=== PATIENT | male | born 1960 | race Hispanic/Latino ===

== ENCOUNTER 2017-10-13 12:45 | Emergency (ER) | payer MEDICAID, OTHER ==
[2017-10-13] MEDS ORDERED: Lidocaine 1% (PF) 30 ML VIAL ONE (13:13)
[2017-10-13] MEDS ORDERED: Dexamethasone 10 MG/ML VIAL ONE (13:13)
[2017-10-13] MEDS ORDERED: cefTRIAXone\\ROCEPHIN 500 MG VIAL ONE (13:13)
--- NOTE | 2017-10-13 15:07 | RAD ---
PORTABLE CHEST: Date: 10/13/17 HISTORY: Cough. COMPARISON: 07/04/03. Review is also most of chest x-ray of 07/18/08, which is the most recent exam available. FINDINGS: Heart size appears slightly enlarged. There is a right-sided pleural effusion present. Left lung is c lear. IMPRESSION: Development of some right-sided pleural changes. These could be chronic in nature or could be related to a more acute small right pleural effusion with associated atelectasis. POS: [facility]
== END 2017-10-13 13:45 | disposition home or self-care (01) ==
LOC: ERS 12:45
DX: J20.9 Acute bronchitis, unspecified (principal); E11.9 Type 2 diabetes mellitus without complications; I10 Essential (primary) hypertension; F20.9 Schizophrenia, unspecified; Z79.84 Long term (current) use of oral hypoglycemic drugs; Z79.899 Other long term (current) drug therapy
CPT/HCPCS: 71045; 94640; 96372; J0696; J1100; J2001; J7620

== ENCOUNTER 2018-11-08 14:36 | Emergency (ER) | payer OTHER ==
[2018-11-08 16:02] LABS: #Eosinphils 0.5 thou/uL (0.0-0.7); #Lymphocytes 0.7 thou/uL (1.20-3.40); #Monocytes 0.6 thou/uL (0.11-0.59); #Neutrophils 7.2 thou/uL (1.40-6.50); %Basophils 0.1 % (0.0-1.0); %Eosinophils 5.2 % (0.0-10.0); %Lymphocytes 7.9 % (21.0-51.0); %Monocytes 6.5 % (0.0-10.0); %Neutrophils 80.3 % (42.0-75.0); Hemoglobin 9.6 g/dL (14.0-18.0); Mean Corpuscular HGB CONC 33.6 g/dL (32.0-36.0); Mean Corpuscular Hemoglobin 31.5 pg (27.0-31.0); Mean Corpuscular Volume 93.8 fL (78.0-98.0); Mean Platelet Volume 6.6 fL (7.4-10.4); Platelet Count 127 thou/uL (130-400); RBC Distribution Width 11.3 % (11.5-14.5); Red Blood Cell (RBC) Count 3.04 mill/uL (4.70-6.10)
[2018-11-08 16:11] LABS: ALT (SGPT) 12 U/L (8-55); AST (SGOT) 12 U/L (5-34); Albumin 3.7 g/dL (3.5-5.0); Alkaline Phosphatase 78 U/L (40-150); Anion Gap 11 mmol/L (10-20); BUN (Urea Nitrogen) 25 mg/dL (8.4-25.7); Bilirubin, Total 0.3 mg/dL (0.2-1.2); Calc. Creatinine Clearance 0 mL/min (70-130); Calcium 8.6 mg/dL (7.8-10.44); Carbon Dioxide 28 mmol/L (22-29); Chloride 104 mmol/L (98-107); Estimated GFR-MDRD 42; Globulin 3.3 g/dL (2.4-3.5); Glucose 130 mg/dL (70-105); Lipase 19 U/L (8-78); Potassium 4.5 mmol/L (3.5-5.1); Sodium 138 mmol/L (136-145)
== END 2018-11-08 16:50 | disposition home or self-care (01) ==
LOC: ERS 14:36
DX: E11.649 Type 2 diabetes mellitus with hypoglycemia without coma (principal); R10.9 Unspecified abdominal pain; I10 Essential (primary) hypertension; F20.9 Schizophrenia, unspecified; Z79.899 Other long term (current) drug therapy; Z79.84 Long term (current) use of oral hypoglycemic drugs; Z79.51 Long term (current) use of inhaled steroids
CPT/HCPCS: 36415; 36416; 80053; 83690; 85025; 99285

== ENCOUNTER 2018-12-11 10:55 | Emergency (ER) | payer OTHER | END 2018-12-11 13:29 | disposition home or self-care (01) | LOC: ERS 10:55 | DX: K59.00 Constipation, unspecified (principal) | CPT/HCPCS: 99281 ==

== ENCOUNTER 2018-12-30 15:47 | Emergency (ER) | payer OTHER ==
[2018-12-30 16:24] LABS: #Eosinphils 0.5 thou/uL (0.0-0.7); #Lymphocytes 0.9 thou/uL (1.20-3.40); #Monocytes 0.5 thou/uL (0.11-0.59); #Neutrophils 4.2 thou/uL (1.40-6.50); %Basophils 0.2 % (0.0-1.0); %Eosinophils 7.7 % (0.0-10.0); %Lymphocytes 14.4 % (21.0-51.0); %Monocytes 7.9 % (0.0-10.0); %Neutrophils 69.9 % (42.0-75.0); Hemoglobin 9.8 g/dL (14.0-18.0); Mean Corpuscular HGB CONC 35.1 g/dL (32.0-36.0); Mean Corpuscular Hemoglobin 32.7 pg (27.0-31.0); Mean Corpuscular Volume 93.1 fL (78.0-98.0); Mean Platelet Volume 6.7 fL (7.4-10.4); Platelet Count 127 thou/uL (130-400); RBC Distribution Width 11.3 % (11.5-14.5); Red Blood Cell (RBC) Count 2.99 mill/uL (4.70-6.10)
[2018-12-30 16:46] LABS: ALT (SGPT) 7 U/L (8-55); AST (SGOT) 11 U/L (5-34); Albumin 3.8 g/dL (3.5-5.0); Alkaline Phosphatase 76 U/L (40-150); Anion Gap 14 mmol/L (10-20); BUN (Urea Nitrogen) 24 mg/dL (8.4-25.7); Bilirubin, Total 0.4 mg/dL (0.2-1.2); Calc. Creatinine Clearance 0 mL/min (70-130); Calcium 8.7 mg/dL (7.8-10.44); Carbon Dioxide 21 mmol/L (22-29); Chloride 104 mmol/L (98-107); Estimated GFR-MDRD 40; Globulin 3.2 g/dL (2.4-3.5); Glucose 81 mg/dL (70-105); Potassium 4.2 mmol/L (3.5-5.1); Sodium 135 mmol/L (136-145)
[2018-12-30 18:02] LABS: Bilirubin Negative (Negative); Blood, Urine Negative (Negative); Clarity CLEAR (Clear); Glucose, Urine (Dipstick) Negative (Negative); Leukocyte Negative (Negative); Nitrite Negative (Negative); Protein, Urine (Dipstick) Negative (Neg-Trace); Specific Gravity, Urine 1.012 (1.002-1.036); pH, Urine 6.5 (5.0-9.0)
== END 2018-12-30 19:46 | disposition home or self-care (01) ==
LOC: ERS 15:47
DX: E11.649 Type 2 diabetes mellitus with hypoglycemia without coma (principal); I10 Essential (primary) hypertension; F32.9 Major depressive disorder, single episode, unspecified; F25.9 Schizoaffective disorder, unspecified; Z79.899 Other long term (current) drug therapy; Z79.84 Long term (current) use of oral hypoglycemic drugs
CPT/HCPCS: 36415; 36416; 51701; 80053; 81003; 83690; 84484; 85025; 93005

== ENCOUNTER 2019-02-14 15:24 | Inpatient (IN) | payer OTHER ==
[2019-02-14] MEDS ORDERED: D5 1/2 NS w/20 mEq KCL 0 ML ONE (16:41)
[2019-02-14 16:53] LABS: #Eosinphils 0.2 thou/uL (0.0-0.7); #Lymphocytes 0.8 thou/uL (1.20-3.40); #Monocytes 0.6 thou/uL (0.11-0.59); #Neutrophils 7.1 thou/uL (1.40-6.50); %Basophils 0.3 % (0.0-1.0); %Lymphocytes 9.2 % (21.0-51.0); %Monocytes 6.9 % (0.0-10.0); %Neutrophils 81.6 % (42.0-75.0); Hemoglobin 10.1 g/dL (14.0-18.0); Mean Corpuscular HGB CONC 33.5 g/dL (32.0-36.0); Mean Corpuscular Hemoglobin 31.7 pg (27.0-31.0); Mean Corpuscular Volume 94.7 fL (78.0-98.0); Mean Platelet Volume 7.1 fL (7.4-10.4); Platelet Count 122 thou/uL (130-400); RBC Distribution Width 11.8 % (11.5-14.5); Red Blood Cell (RBC) Count 3.18 mill/uL (4.70-6.10); White Blood Cell (WBC) Count 8.7 thou/uL (4.8-10.8)
[2019-02-14 17:14] LABS: ALT (SGPT) 8 U/L (8-55); AST (SGOT) 10 U/L (5-34); Albumin 3.8 g/dL (3.5-5.0); Alkaline Phosphatase 78 U/L (40-150); Anion Gap 11 mmol/L (10-20); BUN (Urea Nitrogen) 34 mg/dL (8.4-25.7); Bilirubin, Total 0.3 mg/dL (0.2-1.2); Calc. Creatinine Clearance 0 mL/min (70-130); Calcium 8.8 mg/dL (7.8-10.44); Carbon Dioxide 23 mmol/L (22-29); Chloride 109 mmol/L (98-107); Estimated GFR-MDRD 50; Globulin 3.3 g/dL (2.4-3.5); Potassium 4.3 mmol/L (3.5-5.1); Protein, Total 7.1 g/dL (6.0-8.3); Sodium 139 mmol/L (136-145)
[2019-02-14 17:27] LABS: Glucose 23 mg/dL (70-105)
[2019-02-14] MEDS ORDERED: Dextrose 50% Abboject 50 ML SYRINGE ONE ×2 (17:51→21:06)
[2019-02-14 19:36] VITALS: BMI 22.8
[2019-02-14] MEDS ORDERED: Dextrose 5 % And 0.9 % NaCl 1,000 ML IV SCH (21:45)
[2019-02-14] MEDS ORDERED: Acetaminophen 325 MG TAB PO PRN (22:05)
[2019-02-14] MEDS ORDERED: Senokot S 8.6-50 MG TAB PO PRN (22:05)
[2019-02-14] MEDS: Dextrose 10% in Water 1,000 ML IV SCH (22:20)
[2019-02-14] MEDS ORDERED: Dextrose 50% Abboject 50 ML SYRINGE SLOW IVP PRN (23:11)
[2019-02-14] MEDS ORDERED: HumaLOG 300 UNITS/3 ML VIAL SC PRN (23:11)
[2019-02-14] MEDS ORDERED: Dextrose 5% in Water 1,000 ML IV PRN (23:11)
--- NOTE | 2019-02-15 03:51 | HP ---
CHIEF COMPLAINT: Slurred speech. HISTORY OF PRESENT ILLNESS: The patient is a 58-year-old male with a history of schizophrenia and also history of diabetes, who presents to the hospital with complaints of possible slurred speech. The patient's brother, who was at the bedside stated that for the past few months, he has noticed that the patient has been having multiple episodes of hypoglycemia. The patient's brother noted today that the patient appeared to have some slurred speech at this time. He was also found to be acting a little strange to the brother. He did check his blood sugar and the blood sugar was very low. At this time, the patient was given some candy and juice by the family and also was given a little piece of pie and some soda. The patient's brother then took him to the grocery store; however, later on, the patient started acting strange again. At this time, the patient's brother checked the blood sugar and stated that it was high. At this time, ambulance was called. When he was seen by the ambulance EMS people, he was noted to have hypoglycemia and at this time, the patient was given a D50 shot. The patient's brother who was at the bedside stated that for the past couple of months, he has lost a significant amount of weight, about 23 pounds, because the patient has been having some dysphagia. The patient's brother also stated that he is unclear if the dysphagia is related to his psychiatric disease versus medication versus something else. He has been following up with his primary care, who was supposed to connect him with GI for possible endoscopy, which currently has not happened. He also further states that the patient has now gained weight and has been eating without any difficulties. PAST MEDICAL HISTORY: As of the following; 1. History of schizophrenia. 2. History of hypertension and diabetes. 3. History of pancreatitis. PAST SURGICAL HISTORY: He has had a cholecystectomy. ALLERGIES: HE HAS NO KNOWN ALLERGIES. MEDICATIONS: 1. Benztropine 2 mg p.o. daily. 2. Finasteride 5 mg daily. 3. Lisinopril 5 mg daily. 4. Metoprolol 50 mg daily. 5. Olanzapine 20 mg daily. 6. Trazodone 100 mg daily. 7. Glyburide 2.5/500 one p.o. q.a.m. with meals. REVIEW OF SYSTEMS: All negative except for the ones mentioned above in the HPI. SOCIAL HISTORY: He denies any alcohol use, drug use, or smoking history. He lives with his brother and he is a full code. FAMILY HISTORY: Sisters had stomach cancer. One sister had coronary artery disease. One sister had hypertension. LABORATORY RESULTS: As of the following; WBCs of 8.7, hemoglobin of 10.1, hematocrit of 30.2, platelets of 122. Chemistry; sodium 139, potassium of 4.3, BUN 34, creatinine 1.45. His glucose was 23. PHYSICAL EXAMINATION: VITAL SIGNS: As of the following; temperature 97.6, heart rate 81, respirations 18, O2 saturations 99% on room air, and blood pressure 162/81. GENERAL: He is awake, alert, and oriented x3. Does not appear in any distress. HEENT: Normocephalic, atraumatic. No lymphadenopathy noted. Pupils are equal and reactive to light. CV: S1 and S2 present. No murmurs, rubs, or gallops. LUNGS: Clear to auscultation. No rhonchi or wheezes noted. ABDOMEN: Soft and nontender. Bowel sounds are present x2. EXTREMITIES: No edema. Pedal pulses are present x2. NEUROVASCULAR: There are no focal deficits noted. SKIN: No cuts, lesions, or bruises noted. ASSESSMENT AND PLAN: The patient is a very pleasant 58-year-old male, who presents to the hospital with complaints of slurred speech and was found to have hypoglycemia. 1. Hypoglycemia. This could be secondary to his medication related. The patient is on glyburide and on metformin. The brother did state that the patient has lost a tremendous amount of weight; however, now he continues to gain his weight back. This could be secondary to the glyburide. I will hold his medications. I will check a hemoglobin A1c. I will hold off any further testing in regard to possible C-peptide and also insulin-like growth factor for now. We will continue the D10 and continue to monitor him closely. 2. History of hypertension. We will continue his home medications. 3. History of schizophrenia. I do not believe some of his medications are causing hypoglycemia. I believe this is possibly from weight loss and also the use of glyburide since metformin does not cause hypoglycemia. 4. Deep vein thrombosis prophylaxis. We will put the patient on some SCDs and heparin. Job ID: [id number]
[2019-02-15] MEDS ORDERED: hydrALAZINE 20 MG/ML VIAL SLOW IVP PRN (04:54)
[2019-02-15 05:52] LABS: #Eosinphils 0.2 thou/uL (0.0-0.7); #Lymphocytes 0.5 thou/uL (1.20-3.40); #Monocytes 0.5 thou/uL (0.11-0.59); #Neutrophils 5.1 thou/uL (1.40-6.50); %Eosinophils 2.9 % (0.0-10.0); %Lymphocytes 8.4 % (21.0-51.0); %Monocytes 7.4 % (0.0-10.0); %Neutrophils 81.3 % (42.0-75.0); Hemoglobin 9.5 g/dL (14.0-18.0); Mean Corpuscular Volume 96.8 fL (78.0-98.0); Mean Platelet Volume 7.1 fL (7.4-10.4); Platelet Count 113 thou/uL (130-400); RBC Distribution Width 11.9 % (11.5-14.5); Red Blood Cell (RBC) Count 3.08 mill/uL (4.70-6.10); White Blood Cell (WBC) Count 6.3 thou/uL (4.8-10.8)
[2019-02-15 06:11] LABS: Anion Gap 11 mmol/L (10-20); BUN (Urea Nitrogen) 27 mg/dL (8.4-25.7); Calc. Creatinine Clearance 57 mL/min (70-130); Calcium 8.7 mg/dL (7.8-10.44); Carbon Dioxide 22 mmol/L (22-29); Chloride 107 mmol/L (98-107); Estimated GFR-MDRD 55; Glucose 104 mg/dL (70-105); Potassium 4.1 mmol/L (3.5-5.1); Sodium 136 mmol/L (136-145)
[2019-02-15] MEDS: Enoxaparin Sodium 40 MG/0.4 ML SYRINGE SC SCH (07:49)
[2019-02-15] MEDS: OLANZapine 5 MG TAB PO SCH (07:49)
[2019-02-15] MEDS: traZODone HCl 50 MG TAB PO SCH (07:50)
[2019-02-15] MEDS: Benztropine 1 MG TAB PO SCH (07:50)
[2019-02-15] MEDS: Lisinopril 5 MG TAB PO SCH (07:51)
[2019-02-15] MEDS: Metoprolol Tartrate 50 MG TAB PO SCH (07:51)
[2019-02-15] MEDS: Finasteride 5 MG TAB PO SCH (07:51)
--- NOTE | 2019-02-15 09:22 | PRG ---
DATE OF SERVICE: 02/15/2019 SUBJECTIVE: The patient is seen and examined at the bedside. The patient's brother is present in the room during my visit. He does not have much complaints to offer. OBJECTIVE: VITAL SIGNS: Blood pressure is 171/84, pulse is 76, respiratory rate is 18, O2 saturation is 97% on room air, and temperature is 98.0. HEENT: His head is atraumatic and normocephalic. Eyes are PERRLA, sclerae are nonicteric. Oral mucosa is moist. NECK: Supple. LUNGS: Clear. HEART: S1, S2 normal. ABDOMEN: Soft. Mildly tender on deeper palpation all over. No organomegaly. EXTREMITIES: No clubbing, cyanosis, or edema. NEUROLOGIC: He follows my commands. He is not very well oriented. He knows that he is in the hospital, but he does not know exact date, but that is normal according to his brother. He moves his all 4 extremities. LABORATORY DATA: Labs showed white count of 6.3, hemoglobin 9.5, hematocrit 29.8, platelet count is 113, neutrophils 81%. Normal electrolytes. BUN of 27, creatinine 1.33. Glucose is ranging from 40 to 122. Hemoglobin A1c 5.0. IMPRESSION: 1. Recurrent hypoglycemia in the setting of renal insufficiency. We will continue holding his oral medications, which is a combination of glyburide and metformin. We will continue his D10 IV fluids. I think that he is going to recover from this in the next 24 hours and he will not need any D10 support. If he does not, we will do additional testing on him, but this is most likely related to his medications he was taking at home. 2. Hypertension. We will continue his home medications and make some adjustments to get his blood pressure under better control. 3. History of schizophrenia. He gets injections every 2 weeks for his psychiatric illness. We will keep him on deep vein thrombosis prophylaxis with Lovenox and sequential compression devices. Job ID: [id number]
[2019-02-15] MEDS: Dextrose 10% in Water 1,000 ML IV SCH (12:00)
--- NOTE | 2019-02-15 17:01 | EKG ---
Test Reason : Blood Pressure : / mmHG Vent. Rate : 073 BPM Atrial Rate : 073 BPM P-R Int : 138 ms QRS Dur : 082 ms QT Int : 390 ms P-R-T Axes : 043 027 036 degrees QTc Int : 429 ms Normal sinus rhythm Normal ECG Confirmed by JOSE ALFREDO HUGGINS, BALA ([id number]), graphics editor TEDDY LEWIS ([id number]) on 02/15/2019 5:01:11 PM Referred By: Confirmed By:BALA VELIZ MD
[2019-02-16] MEDS: Enoxaparin Sodium 40 MG/0.4 ML SYRINGE SC SCH (07:58)
[2019-02-16] MEDS: Finasteride 5 MG TAB PO SCH (07:59)
[2019-02-16] MEDS: Benztropine 1 MG TAB PO SCH (07:59)
[2019-02-16] MEDS: Metoprolol Tartrate 50 MG TAB PO SCH (08:00)
[2019-02-16] MEDS: Lisinopril 5 MG TAB PO SCH (08:00)
[2019-02-16] MEDS: OLANZapine 5 MG TAB PO SCH (08:01)
[2019-02-16] MEDS: traZODone HCl 50 MG TAB PO SCH (08:06)
--- NOTE | 2019-02-16 12:46 | DIS ---
DATE OF ADMISSION: 02/14/2019 DATE OF DISCHARGE: 02/16/2019 DISCHARGE DIAGNOSES: 1. Hypoglycemia related to medications, metformin plus glipizide. 2. Renal insufficiency, improved with IV fluids. 3. Hypertension. 4. History of schizophrenia. HOSPITAL COURSE: The patient is a 58-year-old male with past medical history of diabetes and schizophrenia, who developed slurred speech and he was found to be hypoglycemic. By EMS, he was given D50 injection and brought to the emergency room for further evaluation home. At the time of emergency room evaluation, his white count was 8.7, hemoglobin 10.1, hematocrit 30.2, and platelet count 122. Sodium 139, potassium 4.3, BUN 34, creatinine 1.45, and glucose was 23. The patient was treated for his hypoglycemia. His hemoglobin A1c came back at 5.0. His combination of glipizide and metformin were stopped and his glycemia recovered with D5 water infusion. His last several Accu-Cheks came back at 197, 230, 171, and 149. His D5 water infusions were stopped yesterday. He is discharged home. His vitals are blood pressure is 167/72, pulse is 81, temperature is 98.1, respirations 18, and O2 saturation is 97% on room air. He is seen and examined before his discharge. His disposition is home. His brother is present during this visit in the room. He is willing to take him home. DIET: He is going to stay on 2000-calories ADA diet. ACTIVITIES: As tolerated. HOME MEDICATIONS: 1. Metformin 500 mg twice a day. 2. Benztropine 2 mg daily. 3. Finasteride 5 mg daily. 4. Lisinopril 5 mg daily. 5. Metoprolol 50 mg daily. 6. Olanzapine 20 mg daily. 7. Trazodone 100 mg at bedtime. FOLLOWUP: He is going to follow up with his primary care physician in 1 week. TIME SPENT: Time spent on this discharge is less than 30 minutes. Job ID: [id number]
[2019-02-16 17:24] VITALS: BP 149/77; TEMP 97.8
== END 2019-02-16 13:56 | disposition home or self-care (01) | DRG 639 ==
LOC: ERS 15:24 → T4-B 17:13 → ERS 18:39
PROVIDERS: ADMIT Family Medicine; ATTEND Family Medicine
DX: E11.649 Type 2 diabetes mellitus with hypoglycemia without coma (principal); I10 Essential (primary) hypertension; F20.9 Schizophrenia, unspecified; T38.3X5A Adverse effect of insulin and oral hypoglycemic [antidiabetic] drugs, initial encounter; N28.9 Disorder of kidney and ureter, unspecified; Z90.49 Acquired absence of other specified parts of digestive tract
CPT/HCPCS: 36415; 36416; 80048; 80053; 83036; 84484; 85025; 93005; 96361; 96374; J1650

== ENCOUNTER 2020-07-10 21:20 | Inpatient (IN) | payer OTHER ==
[~2020-07-10 21:20] MED LIST: Iopamidol-370 76% 500 ML 1 ML ONE
[2020-07-10 22:14] LABS: Hemoglobin 8.6 g/dL (14.0-18.0); Mean Corpuscular HGB CONC 35.1 g/dL (32.0-36.0); Mean Corpuscular Volume 90.9 fL (78.0-98.0); RBC Distribution Width 11.3 % (11.5-14.5); Red Blood Cell (RBC) Count 2.69 mill/uL (4.70-6.10); White Blood Cell (WBC) Count 4.4 thou/uL (4.8-10.8)
--- NOTE | 2020-07-10 22:22 | RAD ---
Exam: Chest one view HISTORY:Cough. Pain. Altered mental status Comparison: 10/13/2017 FINDINGS: Cardiac silhouette:Cardiomegaly Aorta: Unremarkable Pulmonary vessels: Normal Costophrenic angles: Small right-sided effusion LUNGS: Parenchymal changes in the right lower lobe may represent atelectasis. Pneumothorax: None Osseous abnormalities: None IMPRESSION: Pleural and parenchymal changes in the right lung base. Continued surveillance is recomme nded.
[2020-07-10 22:26] LABS: #Lymphocytes 0.5 thou/uL (1.20-3.40); #Monocytes 0.5 thou/uL (0.11-0.59); #Neutrophils 3.3 thou/uL (1.40-6.50); %Eosinophils 0.5 % (0.0-10.0); %Lymphocytes 12.1 % (21.0-51.0); %Monocytes 11.4 % (0.0-10.0); %Neutrophils 76.1 % (42.0-75.0); Mean Platelet Volume 7.2 fL (7.4-10.4); Platelet Count 109 thou/uL (130-400); Platelet Morphology Comment Appears Decreased
[2020-07-10 22:33] LABS: ALT (SGPT) 7 U/L (8-55); AST (SGOT) 13 U/L (5-34); Albumin 3.4 g/dL (3.4-4.8); Alkaline Phosphatase 60 U/L (40-110); Anion Gap 14 mmol/L (10-20); BUN (Urea Nitrogen) 35 mg/dL (8.4-25.7); Bilirubin, Total 0.4 mg/dL (0.2-1.2); Calc. Creatinine Clearance 0 mL/min (70-130); Calcium 7.9 mg/dL (7.8-10.44); Carbon Dioxide 22 mmol/L (23-31); Chloride 105 mmol/L (98-107); Globulin 3.7 g/dL (2.4-3.5); Glucose 148 mg/dL (80-115); Lipase 34 U/L (8-78); Magnesium 2.2 mg/dL (1.6-2.6); Potassium 4.1 mmol/L (3.5-5.1); Protein, Total 7.1 g/dL (5.8-8.1); Sodium 137 mmol/L (136-145)
--- NOTE | 2020-07-10 23:33 | CT ---
Exam: Head CT without contrast HISTORY: Altered mental status. Weakness. COMPARISON: 07/04/2003 FINDINGS: Hemorrhage: No intraparenchymal hemorrhage or extra-axial hematoma. Brain parenchyma: Cortical painting-white matter differentiation is preserved. No mass effect or midline shift. Basilar cisterns are patent. Ventricular system: Ventricles and sulci are patent and symmetric. Calvarium: Intact. Sinuses and mastoid air cells: Adequate aeration. IMPRESSION: No acute intracranial process.
--- NOTE | 2020-07-10 23:37 | CT ---
EXAM: CT ABDOMEN AND PELVIS HISTORY: Abdominal pain. Weakness and diabetes. COMPARISON: 07/16/2008 Procedure: Multiple contiguous axial images were obtained and a CT of the abdomen and pelvis with IV contrast. C oronal reformats were performed. FINDINGS: Lower Chest: Dependent atelectatic changes. Right lower lobe aspiration or pneumonia. Small right-rohit ed pleural effusion. Vessels: Normal caliber aorta. No periaortic fat stranding. Heart: Normal heart size. No significant pericardial fluid Abdomen: Portal vein:Patent Gallbladder: Surgically absent Liver: within normal limits. Pancreas: within normal limits. Spleen: within normal limits. Adrenals: within normal limits. Kidneys: Symmetric enhancement. No obstructive uropathy. Nonobstructing 1 mm calculus in the left int rarenal collecting system. Exophytic hypodensity emanating from the lower pole of the right kidney with attenuation coefficient of 17 Hounsfield units, compatible with a 2.7 cm cyst. Peritoneum: No ascites or free air, no fluid collection. Bowel: Limited evaluation due to lack of oral contrast administration. Normal caliber small bowel loo ps. Normal ileocecal junction. Normal caliber truncated appendix. Scattered fecal material throughout the entire colon. There is significant fecal material, worrisome for a component of consti pation. There is copious fecal material in the distended distal sigmoid colon and rectum. There is thinning of the mucosa with adjacent inflammatory changes. Mild stranding of the presacral fat. There is concern for stercoral colitis. Mesentery and Retroperitoneum: No enlarged mesenteric or retroperitoneal lymph nodes. Abdominal Wall: within normal limits. Pelvis: Reproductive Organs: Reproductive organs are unremarkable. Pelvis: No mass, lymphadenopathy, free air or free fluid. Bladder: within normal limits. Bones: No lytic or blastic lesions in the osseous structures IMPRESSION: 1. Significant fecal material. Correlate for constipation 2. Markedly distended sigmoid colon and rec sharan. There is evidence for stercoral colitis. Surgical consultation is recommended
[2020-07-10] MEDS ORDERED: Ondansetron PF 4 MG/2 ML Vial ONE (23:40)
[2020-07-11 00:28] LABS: Bilirubin Negative (Negative); Blood, Urine Negative (Negative); Clarity Turbid (Clear); Glucose, Urine (Dipstick) Normal (Negative); Ketone, Urine Negative (Negative); Leukocyte 500 Leu/uL (Negative); Nitrite 2+ (Negative); Protein, Urine (Dipstick) 100 mg/dL (Neg-Trace); Specific Gravity, Urine 1.027 (1.002-1.036); Squamous Epithelial 0-3 HPF (0-3); WBC/HPF 21-50 HPF (0-3); pH, Urine 8.5 (5.0-9.0)
[2020-07-11 00:30] LABS: Bacteria/HPF 1+ HPF (None Seen)
[2020-07-11] MEDS ORDERED: Ondansetron PF 4 MG/2 ML Vial IVP PRN ×2 (02:30→02:33)
[2020-07-11] MEDS ORDERED: cefTRIAXone\\ROCEPHIN 1 GM in Sodium Chloride 0.9% 100 ML IVPB SCH (02:30)
[2020-07-11] MEDS ORDERED: Ondansetron ODT 4 MG TAB SL PRN (02:30)
[2020-07-11] MEDS ORDERED: Lactated Ringer's 1,000 ML IV SCH (02:30)
[2020-07-11] MEDS ORDERED: Acetaminophen 325 MG TAB PO PRN (02:33)
[2020-07-11] MEDS ORDERED: Promethazine HCl 12.5 MG in Sodium Chloride 0.9% 50 ML IVPB PRN (02:33)
[2020-07-11] MEDS ORDERED: Dextrose 5% in Water 1,000 ML IV PRN (02:39)
[2020-07-11] MEDS ORDERED: Dextrose 50% Abboject 50 ML SYRINGE SLOW IVP PRN (02:39)
--- NOTE | 2020-07-11 02:40 | PDOC.HHP ---
Hospitalist HPI - History of Present Illness Altered mental status History of Present Illness: Patient is a 60 year old male with PMH DM, HTN who presents to hospital for weakness, altered mental status. Patients family brought patient in for weakness, reduced PO compared to baseline. They were concerned blood sugar was low, but check in ED revealed sugar ~200. Patient also reported some nausea, abdominal pain. Denies chest pain and shortness of breath. Patient is poor historian. Labwork in ED significant for Cr 1.8, WBC 4.4, platelets 109, CXR reveals pleural an parenchymal changes in R lung base. CT abdomen/pelvis report reveals significant fecal material, distended sigmoid colon and rectum, sterc oral colitis, surgical consultation recommended. CT head reports no acute IC process. UA positive for UA. Patient to be admitted for UA, abnormal abdominal imaging. Hospitalist ROS - Review of Systems ROS unobtainable: due to mental status - Medication Medications: Active Medications Generic Name Dose Route Start Last Admin Trade Name Freq PRN Reason Stop Dose Admin Ceftriaxone Sodium 1 gm/ 100 mls @ 200 mls/hr 07/11/20 02:30 07/11/20 02:38 Sodium Chloride IVPB 07/11/20 04:00 100 mls NOW FRIEDA Administration Ondansetron HCl 4 mg 07/11/20 02:30 07/11/20 02:38 Ondansetron Pf 4 Mg/2 Ml Vial IVP 07/11/20 15:00 4 mg Q6H PRN Administration Nausea/Vomiting traZODone SunJul 11, 2020 01:31 CARLIE Simms [place] TABLET : Strength - 100 mg : ORAL Patient Dose: 1-2 tab(s) Oral once a day (at bedtime). meTOPROLOL tartrate oral SunJul 11, 2020 01:31 CARLIE Simms [place] TABLET : Strength - 50 mg : ORAL Patient Dose: 1 tab(s) Oral 2 times a day. metFORMIN SunJul 11, 2020 01:31 CARLIE Simms [place] TABLET : Strength - 500 mg : ORAL Patient Dose: 1 tab(s) Oral 2 times a day. lisinopril SunJul 11, 2020 01:32 CARLIE Simms Jordan tablet : Strength - 5 mg : ORAL Patient Dose: 1 tab(s) Oral once a day. benztropine oral SunJul 11, 2020 01:33 CARLIE Simms Jordan tablet : Strength - 2 mg : ORAL Patient Dose: 1 tab(s) Oral 2 times a day. ZyPREXA oral Sun Jul 11, 2020 01:34 CARLIE Simms [place] TABLET : Strength - 20 mg : ORAL Patient Dose: 1 tab(s) Oral 2 times a day. Hospitalist History - Past Medical History Other Medical History: HTN, T2DM, depression, schizophrenia - Past Surgical History Other Surgical History: unknown abdominal surgery - Family History Family History: reports: no pertinent history - Social History Drugs: reports: none - Exam General Appearance: NAD, awake alert Eye: PERRL, anicteric sclera ENT: normocephalic atraumatic, no oropharyngeal lesions, moist mucosa Neck: supple, symmetric, no JVD, no thyromegaly, no lymphadenopathy, no carotid bruit Heart: RRR, no murmur, no gallops, no rubs, normal peripheral pulses Respiratory: CTAB, no wheezes, no rales, no ronchi, normal chest expansion, no tachypnea, normal percussion Gastrointestinal: soft, non-distended, normal bowel sounds, no palpable masses, no guarding, no rigidity Gastrointestinal - other findings: diffuse abdominal tenderness, no guarding/rebound Extremities: no cyanosis, no clubbing, no edema Skin: no lesions, no rashes Neurological: cranial nerve grossly intact, normal sensation to touch, no weakness, no focal deficits, no new deficit Musculoskeletal: normal tone, normal strength, no muscle wasting Psychiatric - other findings: flat affect, not wanting to talk but alert and awake Hospitalist Results - Labs Result Diagrams: 07/10/20 21:50 07/10/20 21:50 Lab results: WBC 4.4 thou/uL (4.8-10.8) L 07/10/20 21:50 Hgb 8.6 g/dL (14.0-18.0) L 07/10/20 21:50 Hct 24.4 % (42.0-52.0) L 07/10/20 21:50 MCV 90.9 fL (78.0-98.0) 07/10/20 21:50 Plt Count 109 thou/uL (130-400) L 07/10/20 21:50 Neutrophils % 76.1 % (42.0-75.0) H 07/10/20 21:50 Sodium 137 mmol/L (136-145) 07/10/20 21:50 Potassium 4.1 mmol/L (3.5-5.1) 07/10/20 21:50 Chloride 105 mmol/L (98-107) 07/10/20 21:50 Carbon Dioxide 22 mmol/L (23-31) L 07/10/20 21:50 BUN 35 mg/dL (8.4-25.7) H 07/10/20 21:50 Creatinine 1.81 mg/dL (0.7-1.3) H 07/10/20 21:50 Glucose 148 mg/dL (80-115) H 07/10/20 21:50 Lactic Acid 0.7 mmol/L (0.5-2.2) 07/10/20 22:41 Calcium 7.9 mg/dL (7.8-10.44) 07/10/20 21:50 Total Bilirubin 0.4 mg/dL (0.2-1.2) 07/10/20 21:50 AST 13 U/L (5-34) 07/10/20 21:50 ALT 7 U/L (8-55) L 07/10/20 21:50 Alkaline Phosphatase 60 U/L (40-110) 07/10/20 21:50 Troponin I 0.010 ng/mL (< 0.028) 07/10/20 21:50 B-Natriuretic Peptide 76.9 pg/mL (0-100) 07/10/20 21:50 Serum Total Protein 7.1 g/dL (5.8-8.1) 07/10/20 21:50 Albumin 3.4 g/dL (3.4-4.8) 07/10/20 21:50 Lipase 34 U/L (8-78) 07/10/20 21:50 Urine Ketones Negative mg/dL (Negative) 07/11/20 00:05 Urine Blood Negative (Negative) 07/11/20 00:05 Urine Nitrite 2+ (Negative) A 07/11/20 00:05 Ur Leukocyte Esterase 500 Elieser/uL (Negative) A 07/11/20 00:05 Urine RBC 4-6 HPF (0-3) A 07/11/20 00:05 Urine WBC 21-50 HPF (0-3) A 07/11/20 00:05 Ur Squamous Epith Cells 0-3 HPF (0-3) 07/11/20 00:05 Urine Bacteria 1+ HPF (None Seen) A 07/11/20 00:05 Additional comment: VITAL SIGNS Sun Jul 11, 2020 01:17 CARLIE Simms, Drew BP: 154/77 Pulse: 79 Resp: 18 Temp: 98.9 (Oral) Pain: 0 O2 sat: 98 on (Room Air) Time: 07/11/2020 01:17. Hospitalist H&P A/P - Plan Plan: Patient is a 60 year old male with PMH DM, HTN who presents to hospital for weakness, altered mental status. # UTI # metabolic encephalopathy - ceftriaxone - follow culture results # stercoral colitis # colonic distension CT abdomen/pelvis report reveals significant fecal material, distended sigmoid colon and rectum, stercoral colitis, surgical consultation recommended. - consult general surgery - NPO - IVF # abnormal lung imaging - CXR reveals pleural and parenchymal changes in R lung base, recommends follow up which can be performed as outpatient - patient should be referred to PCP on discharge for follow up imaging # DIOMEDES - suspect secondary to reduced PO intake and constipation, IVF, trend BMP # thrombocytopenia - platelets 109 # DVT ppx - monitor platelets
[2020-07-11] MEDS ORDERED: Electrolyte Replacement Protocol 1 EACH FS SCH (02:45)
[2020-07-11 03:18] VITALS: BMI 23.7
[2020-07-11] MEDS: Sodium Chloride 0.9% 1,000 ML IV SCH ×2 (03:30→15:05)
[2020-07-11 07:40] LABS: SARS-CoV-2 MS2 Positive; SARS-CoV-2 N Gene Positive; SARS-CoV-2 S Gene Positive; SARS-CoV-2 by NAA DETECTED (NotDetected); SARS-CoV-2 orf1ab Positive
[2020-07-11] MEDS ORDERED: Benzonatate 100 MG CAP PO PRN (07:45)
[2020-07-11] MEDS: Famotidine 20 MG TAB PO SCH ×2 (08:23→20:22)
[2020-07-11] MEDS: Lisinopril 5 MG TAB PO SCH (08:23)
[2020-07-11] MEDS: Senokot S 8.6-50 MG TAB PO SCH ×2 (08:23→20:22)
[2020-07-11] MEDS: Benztropine 1 MG TAB PO SCH (08:23)
[2020-07-11] MEDS: Finasteride 5 MG TAB PO SCH (08:23)
[2020-07-11] MEDS: Polyethylene Glycol 3350 17 GM Packet PO SCH (08:23)
[2020-07-11] MEDS: OLANZapine 5 MG TAB PO SCH (08:24)
[2020-07-11] MEDS: Tamsulosin HCl 0.4 MG CAP PO SCH (08:24)
[2020-07-11] MEDS: Metoprolol Tartrate 50 MG TAB PO SCH ×2 (08:24→20:22)
[2020-07-11] MEDS ORDERED: FLU VACC QS2020-21(6MOS UP)/PF 60 MCG/0.5 ML SYRINGE IM ONE (09:00)
[2020-07-11] MEDS ORDERED: Sodium Chloride 0.9% 1,000 ML IV SCH (13:30)
[2020-07-11] MEDS: Fleet Enema 133 ML BOT PR SCH ×2 (14:43→18:26)
[2020-07-11] MEDS: cloNIDine 0.1 MG TAB PO PRN (15:37)
--- NOTE | 2020-07-11 16:10 | PDOC.EVN ---
Event Note - Event Note Event Note: Patient was seen earlier morning by Dr. Myles. Since that time patient has tested positive for COVID-19. Discussed patient with his nurse she states he is doing well and appears to be asymptomatic with the Covid. She denies any needs currently for him. Currently awaiting surgical team recommendations. Continue IV antibiotics.
[2020-07-11] MEDS: Magnesium Citrate 300 ML BOT PO SCH ×2 (18:26→18:43)
[2020-07-11] MEDS: cefTRIAXone\\ROCEPHIN 1 GM in Sodium Chloride 0.9% 100 ML IVPB SCH (20:21)
[2020-07-11] MEDS: Enoxaparin Sodium 40 MG/0.4 ML SYRINGE SC SCH (20:21)
[2020-07-11] MEDS: traZODone HCl 50 MG TAB PO SCH (20:22)
[2020-07-12 06:21] LABS: #Lymphocytes 0.8 thou/uL (1.20-3.40); #Monocytes 0.4 thou/uL (0.11-0.59); #Neutrophils 3.1 thou/uL (1.40-6.50); %Basophils 0.2 % (0.0-1.0); %Eosinophils 0.9 % (0.0-10.0); %Lymphocytes 18.6 % (21.0-51.0); %Monocytes 9.6 % (0.0-10.0); %Neutrophils 70.7 % (42.0-75.0); Hemoglobin 8.2 g/dL (14.0-18.0); Mean Corpuscular Hemoglobin 31.3 pg (27.0-31.0); Mean Corpuscular Volume 92.1 fL (78.0-98.0); Mean Platelet Volume 7.1 fL (7.4-10.4); Platelet Count 118 thou/uL (130-400); RBC Distribution Width 11.3 % (11.5-14.5); Red Blood Cell (RBC) Count 2.63 mill/uL (4.70-6.10); White Blood Cell (WBC) Count 4.4 thou/uL (4.8-10.8)
--- NOTE | 2020-07-12 07:10 | CON ---
DATE OF CONSULTATION: 07/11/2020 REASON FOR CONSULT: Severe constipation with possible stercoral colitis. HISTORY OF PRESENT ILLNESS: Mr. Mosley is a 60-year-old man, who was brought in by his family due to weakness and reduced oral intake. They were concerned about possible low blood sugar, but his blood sugar was actually elevated. He also reported some nausea and some abdominal pain. He has very little information to volunteer regarding recent events. He states that he did have a bowel movement this the morning, but has not had one in quite a while before that. He cannot tell how long whether it was a day or a week or even longer. He cannot tell me how long he has been having his abdominal pain or how long he is having his nausea either. In the emergency room, he underwent a CT of the abdomen and pelvis, which showed stercoral colitis with significant retention of fecal material all the way to the right side of the colon. He was admitted to the Medicine Service and received some MiraLAX and did have a bowel movement, although quantity and nature of the bowel movement was not really specified. He is taking some oral intake at home, but again quantity is not specified. He has schizophrenia and his guardian is not with him now. He is Covid positive. PAST MEDICAL HISTORY: Diabetes, hypertension, schizophrenia, and depression. PAST SURGICAL HISTORY: Unknown, but reportedly he had by chart review. FAMILY HISTORY: Sister with stomach cancer, others with heart disease, and hypertension. SOCIAL HISTORY: He does not have any known history of tobacco, alcohol, or drug use. He reportedly has a legal guardian but is in the process of transferring this to another family member. ALLERGIES: REPORTED ADVERSE REACTION TO NAPROXEN. OUTPATIENT MEDICATIONS: 1. Metformin. 2. . 3. Lisinopril. 4. . 5. Trazodone. INPATIENT MEDICATIONS: 1. . 2. Benzonatate. 3. Benztropine. 4. Ceftriaxone. 5. Lovenox. 6. Pepcid. 7. . 8. Metoprolol. 9. Trazodone. 10. Olanzapine. 11. . REVIEW OF SYSTEMS: Ten system review of systems is negative except per HPI. The patient specifically denies dyspnea, chest pain or loss of smell or taste. PHYSICAL EXAMINATION: VITAL SIGNS: The patient is afebrile, heart rate 71, respirations 18 with normal room air sat, blood pressure 192/85. GENERAL: Reveals a pleasant gentleman in no acute distress. Cooperative with examination but unable to supply much history HEENT: Neck is supple without lymphadenopathy or thyroid nodules. RESPIRATORY: Clear to auscultation bilaterally. HEART: Regular rate and rhythm with no murmurs rubs or gallops ABDOMEN: Soft and slightly distended. Has some mild lower abdominal tenderness to palpation without masses or hernias. He does not exhibit rigidity rebound or guarding. NEURO: No focal deficits. PSYCHIATRIC: Alert and cooperative, unable to give much history. RECTAL: Reveals a rectum full of soft stool with harder stool in the upper rectal vault. He was digitally disimpacted with removal of a large amount of stool. LABORATORY DATA: White count 4.4, BUN and creatinine are elevated but LFTs are not elevated. Electrolytes unremarkable. CT images are reviewed and I agree with the written report. The patient has a large amount of retained stool with solid stool and gas all the way in the right colon. The rectum is fairly distended with impacted stool. He has a very redundant sigmoid colon extending all the way to the right side of the abdomen. There is some thickening of the wall of the rectum. I do not appreciate any fat stranding or other changes are on the sigmoid. ASSESSMENT AND PLAN: Severe constipation, likely due to underlying psychiatric diagnoses and multiple medications. This will need to be treated aggressively. He has been digitally disimpacted and will require enemas to mobilize the firm stool in the lower colon. Following which, we will give him some oral laxatives as well. I think he is clinically dehydrated with elevation of his BUN and creatinine above the baseline. He does not appear to be getting much in the way of IV fluids with normal saline ordered at 75 L. He has been n.p.o. since admission. He can have clear liquids as tolerated and I would liberalize his IV fluids. He may require transfusion given his anemia, which may be underestimated due to dehydration. When he was seen in our hospital this summer, his family member reported that he was supposed to be getting an upper and lower endoscopy, but it is not clear to me whether that occurred or not. Apparently, there is no record of it in the system. Certainly, there is no obstructing lesion on CT noted and I suspect that his current issues are related to poor function and medications side effects, but he needs work-up of his anemia and he has not had endoscopy that should be done. Unfortunately, none of his family are at the bedside to give any further history and he has recently come back as COVID positive so visitation will be limited. Job ID: [id number] [id number]
--- NOTE | 2020-07-12 08:46 | RAD ---
SUPINE ABDOMEN: HISTORY: Constipation. FINDINGS: Large volume stool throughout the colon with prominent stool in the sigmoid rectum consistent with th e history of constipation. No mass effect or abnormal calcification. IMPRESSION: Large volume stool throughout colon. POS: AGW
[2020-07-12] MEDS: Polyethylene Glycol 3350 17 GM Packet PO SCH ×3 (09:03→22:29)
[2020-07-12] MEDS: Benztropine 1 MG TAB PO SCH (09:03)
[2020-07-12] MEDS: OLANZapine 5 MG TAB PO SCH (09:03)
[2020-07-12] MEDS: Famotidine 20 MG TAB PO SCH ×2 (09:04→21:41)
[2020-07-12] MEDS: Metoprolol Tartrate 50 MG TAB PO SCH ×2 (09:04→21:42)
[2020-07-12] MEDS: Tamsulosin HCl 0.4 MG CAP PO SCH (09:04)
[2020-07-12] MEDS: Senokot S 8.6-50 MG TAB PO SCH ×3 (09:04→22:30)
[2020-07-12] MEDS: Lisinopril 5 MG TAB PO SCH (09:05)
[2020-07-12] MEDS: Finasteride 5 MG TAB PO SCH (09:05)
[2020-07-12 11:55] LABS: Anion Gap 15 mmol/L (10-20); BUN (Urea Nitrogen) 26 mg/dL (8.4-25.7); Calc. Creatinine Clearance 57 mL/min (70-130); Calcium 7.9 mg/dL (7.8-10.44); Carbon Dioxide 18 mmol/L (23-31); Chloride 108 mmol/L (98-107); Glucose 138 mg/dL (80-115); Potassium 4.2 mmol/L (3.5-5.1); Sodium 137 mmol/L (136-145)
[2020-07-12] MEDS ORDERED: GoLYTELY 4,000 ml Bottle PO SCH (12:15)
[2020-07-12] MEDS ORDERED: Fleet Enema 133 ML BOT PR SCH (12:15)
--- NOTE | 2020-07-12 12:16 | PDOC.GSPN ---
Surgery Progress Note: Subj - Subjective Narrative: Patient feels fine. He had a small bowel movement this morning. His nurse tells me that the second shift supervisor reported a large bowel movement last night. KUB still shows a large amount of stool throughout the colon and rectum. Abdomen is soft but still a little distended. Not as tender. A large amount of mixed consistency stool was manually disimpacted from the rectum again today. Creatinine is still elevated but down from yesterday. Assessment/plan: Severe constipation. Rectum disimpacted again today. Recommend repeat enemas today. Patient apparently refused the mag citrate but did take MiraLAX this morning. Will see if he will drink GoLYTELY; if not we can at least do MiraLAX twice a day. Have ordered another KUB for tomorrow. He may require repeated disimpactions. He does not think be taking much orally so I am going to restart his IV fluids. He may require additional fluids if he takes the GoLYTELY. His acute renal failure appears to be improving but he could easily become dehydrated again with laxatives. Surgery Progress Note: Obj - Vital signs Vital signs: Vital Signs - Most Recent Temp Pulse Resp BP Pulse Ox 98.0 F 65 20 158/73 H 97 07/12/20 09:07 07/12/20 09:07 07/12/20 09:07 07/12/20 09:07 07/12/20 09:07 Surgery Progress Note: Results - Labs Result Diagrams: 07/12/20 05:28 07/12/20 11:00 Lab results: Laboratory Results - last 12 hr 07/12/20 07/12/20 07/12/20 04:52 05:28 11:00 WBC 4.4 L RBC 2.63 L Hgb 8.2 L Hct 24.2 L MCV 92.1 MCH 31.3 H MCHC 34.0 RDW 11.3 L Plt Count 118 L MPV 7.1 L Neutrophils % 70.7 Neutrophils % (Manual) Not Reportable Lymphocytes % 18.6 L Monocytes % 9.6 Eosinophils % 0.9 Basophils % 0.2 Neutrophils # 3.1 Lymphocytes # 0.8 L Monocytes # 0.4 Eosinophils # 0.0 Basophils # 0.0 Sodium 137 Potassium 4.2 Chloride 108 H Carbon Dioxide 18 L Anion Gap 15 BUN 26 H Creatinine 1.35 H Estimated GFR (MDRD) 54 Glucose 138 H POC Glucose 95 Calcium 7.9
[2020-07-12] MEDS: Sodium Chloride 0.9% 1,000 ML IV SCH ×2 (13:16→22:49)
[2020-07-12] MEDS: cloNIDine 0.1 MG TAB PO PRN (17:53)
--- NOTE | 2020-07-12 18:43 | PDOC.HOSPP ---
- Subjective Encounter Date: 07/12/20 Subjective: Seen and examined this morning at bedside. Brought to ED for worsening mentation, decrease PO intake and weakness. He does have underlying dementia. Unable to provide much history on exam. Initial admission findings reveal UTI & severe constipation, incidental COVID19 positive. During my assessment he denies any type of symptoms. - Objective Vital Signs & Weight: Vital Signs (12 hours) Temp Pulse Resp BP BP Pulse Ox Pulse Ox 07/12/20 17:53 188/82 H 07/12/20 16:00 98.2 F 77 20 194/88 H 98 07/12/20 14:35 99 07/12/20 12:00 98.0 F 61 20 157/77 H 97 07/12/20 09:07 98.0 F 65 20 158/73 H 97 07/12/20 09:05 62 Pulse Ox 07/12/20 17:53 07/12/20 16:00 07/12/20 14:35 97 07/12/20 12:00 07/12/20 09:07 07/12/20 09:05 Weight Admit Weight 156 lb 1 oz Weight 156 lb 1 oz I&O: 07/11/20 07/12/20 07/13/20 06:59 06:59 06:59 Intake Total 650 300 Output Total 300 600 Balance 350 -300 Result Diagrams: 07/13/20 07:14 07/13/20 07:14 Additional Labs: Accuchecks 07/12/20 07/12/20 07/12/20 16:44 12:03 04:52 POC Glucose 104 H 129 H 95 07/11/20 20:33 POC Glucose 127 H Hospitalist ROS - Review of Systems ROS unobtainable: due to mental status - Medication Medications: Active Medications Generic Name Dose Route Start Last Admin Trade Name Freq PRN Reason Stop Dose Admin Benztropine Mesylate 2 mg 07/11/20 09:00 07/12/20 09:03 Benztropine 1 Mg Tab PO 2 mg DAILY FRIEDA Administration Clonidine 0.1 mg 07/11/20 02:33 07/12/20 17:53 Clonidine 0.1 Mg Tab PO 0.1 mg BID PRN Administration SBP > 160 use second Enoxaparin Sodium 40 mg 07/11/20 21:00 07/11/20 20:21 Enoxaparin Sodium 40 Mg/0.4 Ml Syringe SC 40 mg 2100 FRIEDA Administration Famotidine 20 mg 07/11/20 09:00 07/12/20 09:04 Famotidine 20 Mg Tab PO 20 mg BID FRIEDA Administration Finasteride 5 mg 07/11/20 09:00 07/12/20 09:05 Finasteride 5 Mg Tab PO 5 mg DAILY FRIEDA Administration Ceftriaxone Sodium 1 gm/ 100 mls @ 200 mls/hr 07/11/20 21:00 07/11/20 20:21 Sodium Chloride IVPB 100 mls HS FRIEDA Administration Sodium Chloride 1,000 mls @ 100 mls/hr 07/12/20 12:30 07/12/20 13:16 Normal Saline 0.9% IV 1,000 mls .Q10H FRIEDA Administration Lisinopril 5 mg 07/11/20 09:00 07/12/20 09:05 Lisinopril 5 Mg Tab PO 5 mg DAILY FRIEDA Administration Metoprolol Tartrate 50 mg 07/11/20 09:00 07/12/20 09:04 Metoprolol Tartrate 50 Mg Tab PO 50 mg BID FRIEDA Administration Olanzapine 20 mg 07/11/20 09:00 07/12/20 09:03 Olanzapine 5 Mg Tab PO 20 mg DAILY FRIEDA Administration Polyethylene Glycol/Electrolytes 4,000 ml 07/12/20 12:15 07/12/20 13:16 Golytely 4,000 Ml Bottle PO 07/12/20 23:59 4,000 ml NOW FRIEDA Administration Senna/Docusate Sodium 1 tab 07/11/20 09:00 07/12/20 09:04 Senokot S 8.6-50 Mg Tab PO 1 tab BID FRIEDA Administration Tamsulosin HCl 0.4 mg 07/11/20 09:00 07/12/20 09:04 Tamsulosin Hcl 0.4 Mg Cap PO 0.4 mg DAILY FRIEDA Administration Trazodone HCl 100 mg 07/11/20 21:00 07/11/20 20:22 Trazodone Hcl 50 Mg Tab PO 100 mg HS FRIEDA Administration - Exam General Appearance: NAD, awake alert ENT: normocephalic atraumatic, no oropharyngeal lesions, moist mucosa Heart: RRR, no murmur, no gallops, no rubs, normal peripheral pulses Respiratory: CTAB, no wheezes, no rales, no ronchi, normal chest expansion, no tachypnea, normal percussion Gastrointestinal: soft, non-tender, non-distended, normal bowel sounds, no palpable masses, no hepatomegaly, no splenomegaly, no bruit Psychiatric: oriented to person, not oriented Psychiatric - other findings: Very poor historian, some underlying dementia Hosp A/P - Plan old records reviewed/req A/P: Admitted for multiple complains including worsening mentation, poor oral intake, weakness & found to have possible UTI, severe constipation and incidental COVID19. # Severe constipation: Fecal impaction with retained stool throughout colon. Several manual disimpaction performed. On laxative regimen. Surgery follows. # UTI: Non septic/toxic appearing. Continue with IV Ceftriaxone. # COVID19: Abnormal chest xray. Otherwise patient appears rather stable from pulmonary stand point. Continue with current precautions. # DIOMEDES: Likely in setting of poor oral intake. Continue with IVF. Monitor renal function closely while on aggressive laxative regimen. # AMS: Some degree of acute delirium in setting of above. Underlying dementia likely summative in worsening mentation. Avoid delirium triggers. Treat UTI and constipation. DISPOSITION: Continue with bowel regimen, serial abdominal exam and abdominal imaging. Surgery follows.
[2020-07-12 20:55] LABS: #Eosinphils 0.1 thou/uL (0.0-0.7); #Lymphocytes 0.7 thou/uL (1.20-3.40); #Monocytes 0.5 thou/uL (0.11-0.59); #Neutrophils 3.6 thou/uL (1.40-6.50); %Basophils 0.1 % (0.0-1.0); %Eosinophils 1.2 % (0.0-10.0); %Lymphocytes 13.5 % (21.0-51.0); %Monocytes 11.1 % (0.0-10.0); %Neutrophils 74.1 % (42.0-75.0); Hemoglobin 8.3 g/dL (14.0-18.0); Mean Corpuscular HGB CONC 34.6 g/dL (32.0-36.0); Mean Corpuscular Hemoglobin 31.8 pg (27.0-31.0); Mean Corpuscular Volume 91.9 fL (78.0-98.0); Mean Platelet Volume 6.9 fL (7.4-10.4); Platelet Count 121 thou/uL (130-400); RBC Distribution Width 11.2 % (11.5-14.5); Red Blood Cell (RBC) Count 2.62 mill/uL (4.70-6.10); White Blood Cell (WBC) Count 4.9 thou/uL (4.8-10.8)
[2020-07-12] MEDS: Enoxaparin Sodium 40 MG/0.4 ML SYRINGE SC SCH (21:41)
[2020-07-12] MEDS: traZODone HCl 50 MG TAB PO SCH (21:42)
[2020-07-12] MEDS: cefTRIAXone\\ROCEPHIN 1 GM in Sodium Chloride 0.9% 100 ML IVPB SCH (21:47)
[2020-07-12 21:48] LABS: Anion Gap 15 mmol/L (10-20); BUN (Urea Nitrogen) 23 mg/dL (8.4-25.7); Calc. Creatinine Clearance 59 mL/min (70-130); Carbon Dioxide 20 mmol/L (23-31); Chloride 107 mmol/L (98-107); Potassium 4.2 mmol/L (3.5-5.1); Sodium 138 mmol/L (136-145)
[2020-07-12 21:49] LABS: Calcium 7.9 mg/dL (7.8-10.44); Glucose 93 mg/dL (80-115)
[2020-07-13 07:39] LABS: #Eosinphils 0.1 thou/uL (0.0-0.7); #Lymphocytes 0.6 thou/uL (1.20-3.40); #Monocytes 0.4 thou/uL (0.11-0.59); #Neutrophils 2.8 thou/uL (1.40-6.50); %Eosinophils 2.2 % (0.0-10.0); %Monocytes 10.3 % (0.0-10.0); %Neutrophils 72.5 % (42.0-75.0); Hemoglobin 8.2 g/dL (14.0-18.0); Mean Corpuscular HGB CONC 35.2 g/dL (32.0-36.0); Mean Corpuscular Hemoglobin 32.3 pg (27.0-31.0); Mean Corpuscular Volume 91.6 fL (78.0-98.0); Mean Platelet Volume 7.2 fL (7.4-10.4); Platelet Count 125 thou/uL (130-400); RBC Distribution Width 11.3 % (11.5-14.5); Red Blood Cell (RBC) Count 2.55 mill/uL (4.70-6.10); White Blood Cell (WBC) Count 3.9 thou/uL (4.8-10.8)
[2020-07-13 07:59] LABS: Anion Gap 14 mmol/L (10-20); BUN (Urea Nitrogen) 21 mg/dL (8.4-25.7); Calc. Creatinine Clearance 65 mL/min (70-130); Calcium 7.9 mg/dL (7.8-10.44); Carbon Dioxide 18 mmol/L (23-31); Chloride 108 mmol/L (98-107); Glucose 93 mg/dL (80-115); Potassium 4.3 mmol/L (3.5-5.1); Sodium 136 mmol/L (136-145)
--- NOTE | 2020-07-13 09:02 | RAD ---
SUPINE ABDOMEN: HISTORY: Constipation. FINDINGS: Large volume stool throughout the colon with a large amount of stool in the sigmoid rectal region whi ch could represent fecal impaction. No mass effect. No abnormal calcification. IMPRESSION: Prominent stool in the rectosigmoid region which could represent fecal impaction. POS: AGW
[2020-07-13] MEDS: Polyethylene Glycol 3350 17 GM Packet PO SCH ×3 (09:04→21:13)
[2020-07-13] MEDS: Tamsulosin HCl 0.4 MG CAP PO SCH (09:04)
[2020-07-13] MEDS: Benztropine 1 MG TAB PO SCH (09:04)
[2020-07-13] MEDS: Lisinopril 5 MG TAB PO SCH (09:04)
[2020-07-13] MEDS: Finasteride 5 MG TAB PO SCH (09:04)
[2020-07-13] MEDS: Senokot S 8.6-50 MG TAB PO SCH ×2 (09:04→20:26)
[2020-07-13] MEDS: Metoprolol Tartrate 50 MG TAB PO SCH ×2 (09:04→20:26)
[2020-07-13] MEDS: Famotidine 20 MG TAB PO SCH ×2 (09:04→20:26)
[2020-07-13] MEDS: Sodium Chloride 0.9% 1,000 ML IV SCH ×2 (09:05→18:15)
[2020-07-13] MEDS: OLANZapine 5 MG TAB PO SCH (09:05)
[2020-07-13] MEDS: Fleet Enema 133 ML BOT PR SCH ×2 (14:20→21:20)
--- NOTE | 2020-07-13 14:27 | PDOC.GSPN ---
Surgery Progress Note: Subj - Subjective Narrative: Patient refused enemas and GoLYTELY yesterday. He did have one bowel movement for hourly shift but his colon is still full of stool on KUB. The nurse states that he refused almost all of his regular medications this morning also. She was able to get him to drink 1 dose of MiraLAX in his water over the course of the morning. He is taking minimal p.o. Assessment/plan: Severe constipation, refusing medical treatment. I had a long discussion with him regarding treatment of his severe constipation. He explained that he does not like to take medicine because it makes him sick. I explained that is because his entire colon is full of stool so nothing can get t hrough and that is why he is not feeling hungry and why he feels nauseated when he tries to drink. I explained that repeated manual disimpaction is inadequate treatment for his constipation because the stool goes up so far in his colon and I can only remove the stool that is in his lower rectum. I offered to place an NG tube into his stomach to give him his medications that way but he refused. He was willing to allow me to disimpact him and administer an enema today and this was performed. I am going to order MiraLAX and Fleet enemas twice daily since these are the only medications he is intermittently permitting. Surgery Progress Note: Obj - Vital signs Vital signs: Vital Signs - Most Recent Temp Pulse Resp BP Pulse Ox 98.0 F 63 20 181/74 H 100 07/13/20 12:00 07/13/20 12:00 07/13/20 12:00 07/13/20 12:00 07/13/20 12:00 Surgery Progress Note: Results - Labs Result Diagrams: 07/13/20 07:14 07/13/20 07:14 Lab results: Laboratory Results - last 12 hr 07/13/20 07/13/20 07/13/20 05:38 07:14 07:14 WBC 3.9 L RBC 2.55 L Hgb 8.2 L Hct 23.4 L MCV 91.6 MCH 32.3 H MCHC 35.2 RDW 11.3 L Plt Count 125 L MPV 7.2 L Neutrophils % 72.5 Lymphocytes % 15.0 L Monocytes % 10.3 H Eosinophils % 2.2 Basophils % 0.0 Neutrophils # 2.8 Lymphocytes # 0.6 L Monocytes # 0.4 Eosinophils # 0.1 Basophils # 0.0 Sodium 136 Potassium 4.3 Chloride 108 H Carbon Dioxide 18 L Anion Gap 14 BUN 21 Creatinine 1.18 Estimated GFR (MDRD) 63 Glucose 93 POC Glucose 107 H Calcium 7.9 07/13/20 11:52 WBC RBC Hgb Hct MCV MCH MCHC RDW Plt Count MPV Neutrophils % Lymphocytes % Monocytes % Eosinophils % Basophils % Neutrophils # Lymphocytes # Monocytes # Eosinophils # Basophils # Sodium Potassium Chloride Carbon Dioxide Anion Gap BUN Creatinine Estimated GFR (MDRD) Glucose POC Glucose 86 Calcium
--- NOTE | 2020-07-13 17:35 | PDOC.HOSPP ---
- Subjective Encounter Date: 07/13/20 Subjective: Seen and examined at bedside. Remains baseline confused with poor insight. Per RN patient continues to refuse most of his medications. During exam he denies any type of complains such as nausea, vomiting, abdominal pain. Tells me he does not take his medications because it makes him sick. As stated by surgery I also explained in detail the importance of using laxatives to making feel better. During my assessment he states he "would think about taking his meds." Discussed with RN and attempts to give Miralax with water initiated. Patient remains severely constipated with poor oral intake. He will be transitioned to inpatient status. - Objective Vital Signs & Weight: Vital Signs (12 hours) Temp Pulse Resp BP BP BP Pulse Ox 07/13/20 16:05 97.9 F 68 18 164/79 H 98 07/13/20 13:28 151/80 H 07/13/20 12:00 98.0 F 63 20 181/74 H 100 07/13/20 09:04 66 177/79 H 07/13/20 08:00 98.3 F 66 20 177/79 H 177/79 H 98 Pulse Ox 07/13/20 16:05 07/13/20 13:28 96 07/13/20 12:00 07/13/20 09:04 07/13/20 08:00 Weight Admit Weight 156 lb 1 oz Weight 156 lb 1 oz I&O: 07/12/20 07/13/20 07/14/20 06:59 06:59 06:59 Intake Total 300 1850 Output Total 600 1100 Balance -300 750 Result Diagrams: 07/13/20 07:14 07/13/20 07:14 Additional Labs: Accuchecks 07/13/20 07/13/20 07/12/20 11:52 05:38 19:34 POC Glucose 86 107 H 94 Radiology Reviewed by me: Yes Hospitalist ROS - Review of Systems ROS unobtainable: due to mental status (Unreliable ROS. Denies any nausea, vomiting, abdominal pain) - Medication Medications: Active Medications Generic Name Dose Route Start Last Admin Trade Name Freq PRN Reason Stop Dose Admin Benztropine Mesylate 2 mg 07/11/20 09:00 07/13/20 09:04 Benztropine 1 Mg Tab PO 2 mg DAILY FRIEDA Administration Clonidine 0.1 mg 07/11/20 02:33 07/12/20 17:53 Clonidine 0.1 Mg Tab PO 0.1 mg BID PRN Administration SBP > 160 use second Enoxaparin Sodium 40 mg 07/11/20 21:00 07/12/20 21:41 Enoxaparin Sodium 40 Mg/0.4 Ml Syringe SC 40 mg 2100 FRIEDA Administration Famotidine 20 mg 07/11/20 09:00 07/13/20 09:04 Famotidine 20 Mg Tab PO 20 mg BID FRIEDA Administration Finasteride 5 mg 07/11/20 09:00 07/13/20 09:04 Finasteride 5 Mg Tab PO 5 mg DAILY FRIEDA Administration Ceftriaxone Sodium 1 gm/ 100 mls @ 200 mls/hr 07/11/20 21:00 07/12/20 21:47 Sodium Chloride IVPB 100 mls HS FRIEDA Administration Sodium Chloride 1,000 mls @ 100 mls/hr 07/12/20 12:30 07/13/20 09:05 Normal Saline 0.9% IV 1,000 mls .Q10H FRIEDA Administration Lisinopril 5 mg 07/11/20 09:00 07/13/20 09:04 Lisinopril 5 Mg Tab PO 5 mg DAILY FRIEDA Administration Metoprolol Tartrate 50 mg 07/11/20 09:00 07/13/20 09:04 Metoprolol Tartrate 50 Mg Tab PO 50 mg BID FRIEDA Administration Olanzapine 20 mg 07/11/20 09:00 07/13/20 09:05 Olanzapine 5 Mg Tab PO 20 mg DAILY FRIEDA Administration Polyethylene Glycol 17 gm 07/12/20 21:00 07/13/20 09:04 Polyethylene Glycol 3350 17 Gm Packet PO 17 gm BID FRIEDA Administration Senna/Docusate Sodium 1 tab 07/11/20 09:00 07/13/20 09:04 Senokot S 8.6-50 Mg Tab PO 1 tab BID FRIEDA Administration Sodium Biphosphate/Sodium Phosphate 133 ml 07/13/20 21:00 07/13/20 14:20 Fleet Enema 133 Ml Bot HI 133 ml BID FRIEDA Administration Tamsulosin HCl 0.4 mg 07/11/20 09:00 07/13/20 09:04 Tamsulosin Hcl 0.4 Mg Cap PO 0.4 mg DAILY FRIEDA Administration Trazodone HCl 100 mg 07/11/20 21:00 07/12/20 21:42 Trazodone Hcl 50 Mg Tab PO 100 mg HS FRIEDA Administration - Exam General Appearance: NAD, awake alert Eye: PERRL, anicteric sclera Heart: RRR, no murmur, no gallops, no rubs, normal peripheral pulses Gastrointestinal: soft, non-tender, non-distended, normal bowel sounds, no palpable masses, no hepatomegaly, no splenomegaly, no bruit Extremities: no cyanosis, no clubbing, no edema Psychiatric: oriented to person (Poor insight), flat affect Hosp A/P - Plan A/P: Admitted for multiple complains including worsening mentation, poor oral intake, weakness & found to have possible UTI, severe constipation and incidental COVID19. # Severe constipation: Fecal impaction with retained stool throughout colon. Several manual disimpaction performed. On laxative regimen including Miralax and enemas. Surgery follows. # UTI: Non septic/toxic appearing. Urine cx growing Providencia sp. Blood cx negative. Continue with IV Ceftriaxone. # COVID19: Abnormal chest xray. Otherwise patient appears rather stable from pulmonary stand point. Continue with current precautions. # DIOMEDES: Likely in setting of poor oral intake. Continue with IVF. Monitor renal function closely while on aggressive laxative regimen. # AMS: Some degree of intermittent acute delirium in setting of above. His mentation appears now at baseline. He has poor insight about medical conditions. Underlying dementia likely summative in worsening mentation. Avoid delirium triggers. Treat UTI and constipation. DISPOSITION: Continue with bowel regimen, serial abdominal exam and abdominal imaging. Surgery follows. Transition patient to inpatient status.
[2020-07-13] MEDS: cefTRIAXone\\ROCEPHIN 1 GM in Sodium Chloride 0.9% 100 ML IVPB SCH (20:25)
[2020-07-13] MEDS: Enoxaparin Sodium 40 MG/0.4 ML SYRINGE SC SCH (20:25)
[2020-07-13] MEDS: traZODone HCl 50 MG TAB PO SCH (20:26)
[2020-07-13] MEDS: Labetalol HCl 100 MG/20 ML VIAL SLOW IVP PRN (21:18)
[2020-07-14] MEDS: Sodium Chloride 0.9% 1,000 ML IV SCH ×2 (04:18→17:59)
[2020-07-14] MEDS: Labetalol HCl 100 MG/20 ML VIAL SLOW IVP PRN ×3 (04:19→20:44)
[2020-07-14] MEDS: Fleet Enema 133 ML BOT PR SCH (09:08)
[2020-07-14] MEDS: Benztropine 1 MG TAB PO SCH (09:08)
[2020-07-14] MEDS: OLANZapine 5 MG TAB PO SCH (09:08)
[2020-07-14] MEDS: Polyethylene Glycol 3350 17 GM Packet PO SCH (09:08)
[2020-07-14] MEDS: Lisinopril 5 MG TAB PO SCH (09:08)
[2020-07-14] MEDS: Senokot S 8.6-50 MG TAB PO SCH ×2 (09:09→21:47)
[2020-07-14] MEDS: Famotidine 20 MG TAB PO SCH ×2 (09:09→20:25)
[2020-07-14] MEDS: Tamsulosin HCl 0.4 MG CAP PO SCH (09:09)
[2020-07-14] MEDS: Metoprolol Tartrate 50 MG TAB PO SCH ×2 (09:09→20:25)
[2020-07-14] MEDS: Finasteride 5 MG TAB PO SCH (09:09)
--- NOTE | 2020-07-14 11:38 | RAD ---
KUB: Date: 07/14/2020 HISTORY: Severe constipation. COMPARISON: 07/13/2020 study. FINDINGS: There is air in both small and large bowel without evidence of obstruction. The amount of stool appea rs reduced as compared to the prior exam. Arthritic changes of the spine and hips are present. IMPRESSION: Nonobstructed bowel gas pattern. Diminished amount of stool as compared to the prior study. POS: MILLA
--- NOTE | 2020-07-14 17:25 | PDOC.HOSPP ---
- Subjective Encounter Date: 07/14/20 Subjective: Seen and examined at bedside. No overnight events of acute complains. Has been having several bowel movements with laxatives and enemas. Refers feeling less nauseated. Taking some of this medications. Awaiting report for repeat imaging study. - Objective Vital Signs & Weight: Vital Signs (12 hours) Temp Pulse Resp BP BP Pulse Ox 07/14/20 12:00 97.9 F 73 16 183/92 H 98 07/14/20 09:08 80 185/83 H 07/14/20 08:00 95 07/14/20 04:19 73 173/80 H 07/14/20 04:15 98.0 F 73 18 173/80 H 98 Weight Admit Weight 156 lb 1 oz Weight 156 lb 1 oz I&O: 07/13/20 07/14/20 07/15/20 06:59 06:59 06:59 Intake Total 1850 3033 Output Total 1100 1901 Balance 750 1132 Result Diagrams: 07/13/20 07:14 07/13/20 07:14 Additional Labs: Accuchecks 07/14/20 07/14/20 07/13/20 11:28 04:22 20:03 POC Glucose 95 78 77 Radiology Reviewed by me: No Hospitalist ROS - Review of Systems ROS unobtainable: due to mental status (Overall poor historian denies any nausea or vomiting. Having BMs with laxatives & enemas. Refers feeling better.) - Medication Medications: Active Medications Generic Name Dose Route Start Last Admin Trade Name Freq PRN Reason Stop Dose Admin Benztropine Mesylate 2 mg 07/11/20 09:00 07/14/20 09:08 Benztropine 1 Mg Tab PO 2 mg DAILY FRIEDA Administration Clonidine 0.1 mg 07/11/20 02:33 07/12/20 17:53 Clonidine 0.1 Mg Tab PO 0.1 mg BID PRN Administration SBP > 160 use second Enoxaparin Sodium 40 mg 07/11/20 21:00 07/13/20 20:25 Enoxaparin Sodium 40 Mg/0.4 Ml Syringe SC 40 mg 2100 FRIEDA Administration Famotidine 20 mg 07/11/20 09:00 07/14/20 09:09 Famotidine 20 Mg Tab PO 20 mg BID FRIEDA Administration Finasteride 5 mg 07/11/20 09:00 07/14/20 09:09 Finasteride 5 Mg Tab PO 5 mg DAILY FRIEDA Administration Ceftriaxone Sodium 1 gm/ 100 mls @ 200 mls/hr 07/11/20 21:00 07/13/20 20:25 Sodium Chloride IVPB 100 mls HS FRIEDA Administration Sodium Chloride 1,000 mls @ 100 mls/hr 07/12/20 12:30 07/14/20 04:18 Normal Saline 0.9% IV 1,000 mls .Q10H FRIEDA Administration Labetalol HCl 20 mg 07/11/20 02:33 07/14/20 04:19 Labetalol Hcl 100 Mg/20 Ml Vial SLOW IVP 4 ml Q4H PRN Administration SBP > 160 use first Lisinopril 5 mg 07/11/20 09:00 07/14/20 09:08 Lisinopril 5 Mg Tab PO 5 mg DAILY FRIEDA Administration Metoprolol Tartrate 50 mg 07/11/20 09:00 07/14/20 09:09 Metoprolol Tartrate 50 Mg Tab PO 50 mg BID FRIEDA Administration Olanzapine 20 mg 07/11/20 09:00 07/14/20 09:08 Olanzapine 5 Mg Tab PO 20 mg DAILY FRIEDA Administration Polyethylene Glycol 17 gm 07/12/20 21:00 07/14/20 09:08 Polyethylene Glycol 3350 17 Gm Packet PO 17 gm BID FRIEDA Administration Senna/Docusate Sodium 1 tab 07/11/20 09:00 07/14/20 09:09 Senokot S 8.6-50 Mg Tab PO 1 tab BID FRIEDA Administration Sodium Biphosphate/Sodium Phosphate 133 ml 07/13/20 21:00 07/14/20 09:08 Fleet Enema 133 Ml Bot [place] 133 ml BID FRIEDA Administration Tamsulosin HCl 0.4 mg 07/11/20 09:00 07/14/20 09:09 Tamsulosin Hcl 0.4 Mg Cap PO 0.4 mg DAILY FRIEDA Administration Trazodone HCl 100 mg 07/11/20 21:00 07/13/20 20:26 Trazodone Hcl 50 Mg Tab PO 100 mg HS FRIEDA Administration - Exam General Appearance: NAD, awake alert Heart: RRR, no murmur, no gallops, no rubs, normal peripheral pulses Respiratory: CTAB, no wheezes, no rales, no ronchi, normal chest expansion, no tachypnea, normal percussion Gastrointestinal: soft, non-tender, non-distended, normal bowel sounds, no palpable masses, no hepatomegaly, no splenomegaly, no bruit Hosp A/P - Plan A/P: Admitted for multiple complains including worsening mentation, poor oral intake, weakness & found to have possible UTI, severe constipation and incidental COVID19. # Severe constipation: Fecal impaction with retained stool throughout colon. Several manual disimpaction performed. On laxative regimen including Miralax and enemas. Has had several bowel movements since yesterday. Awaiting report for repeat imaging study. Surgery follows. # UTI: Non septic/toxic appearing. Urine cx growing Providencia sp. Blood cx negative. Continue with IV Ceftriaxone. Will transition to PO upon discharge due to intermittent refusal to take PO meds to complete 5-7 days. # COVID19: Abnormal chest xray. Otherwise patient appears rather stable from pulmonary stand point. Continue with current precautions. # DIOMEDES: Resolved. Likely in setting of poor oral intake. Continue with IVF. Monitor renal function closely while on aggressive laxative regimen. # AMS: Resolved. Mentation appears to be back to baseline. Some degree of intermittent acute delirium in setting of above. He has poor insight about medical conditions. Underlying dementia likely summative in worsening mentation. Avoid delirium triggers. DISPOSITION: Continue with bowel regimen, serial abdominal exam and abdominal imaging. Surgery follows. Anticipate DC soon once cleared by surgical team.
[2020-07-14] MEDS: Guaifenesin DM 100-10/5 ML UDCUP PO PRN (17:59)
--- NOTE | 2020-07-14 18:17 | PDOC.GSPN ---
Surgery Progress Note: Subj - Subjective Narrative: Feels much better. Had 4 big BMs today. KUB is much improved. Tolerating clears, no nausea. BP high. Abdomen soft, NTND. A/P) Severe constipation, resolved. Fulls, ADAT. Home on bowel regimen; recommend docusate BID and miralax daily. Signing off. Surgery Progress Note: Obj - Vital signs Vital signs: Vital Signs - Most Recent Temp Pulse Resp BP Pulse Ox 97.9 F 70 16 187/83 H 98 07/14/20 12:00 07/14/20 16:34 07/14/20 12:00 07/14/20 16:34 07/14/20 12:00 Surgery Progress Note: Results - Labs Result Diagrams: 07/13/20 07:14 07/13/20 07:14 Lab results: Laboratory Results - last 12 hr 07/13/20 07/14/20 07/14/20 15:57 11:28 16:23 POC Glucose 86 95 86
[2020-07-14] MEDS: Enoxaparin Sodium 40 MG/0.4 ML SYRINGE SC SCH (20:25)
[2020-07-14] MEDS: traZODone HCl 50 MG TAB PO SCH (20:25)
[2020-07-14] MEDS: cefTRIAXone\\ROCEPHIN 1 GM in Sodium Chloride 0.9% 100 ML IVPB SCH (20:26)
[2020-07-14] MEDS: hydrALAZINE 20 MG/ML VIAL SLOW IVP PRN (23:45)
[2020-07-15] MEDS: Sodium Chloride 0.9% 1,000 ML IV SCH ×3 (02:15→20:05)
[2020-07-15] MEDS: hydrALAZINE 20 MG/ML VIAL SLOW IVP PRN (05:43)
[2020-07-15] MEDS: Benztropine 1 MG TAB PO SCH (08:57)
[2020-07-15] MEDS: Lisinopril 5 MG TAB PO SCH (08:57)
[2020-07-15] MEDS: Famotidine 20 MG TAB PO SCH ×2 (08:57→20:05)
[2020-07-15] MEDS: Tamsulosin HCl 0.4 MG CAP PO SCH (08:57)
[2020-07-15] MEDS: Finasteride 5 MG TAB PO SCH (08:57)
[2020-07-15] MEDS: Senokot S 8.6-50 MG TAB PO SCH ×2 (08:57→20:05)
[2020-07-15] MEDS: Metoprolol Tartrate 50 MG TAB PO SCH ×2 (08:58→20:05)
[2020-07-15] MEDS: Polyethylene Glycol 3350 17 GM Packet PO SCH (08:58)
[2020-07-15] MEDS: OLANZapine 5 MG TAB PO SCH (10:01)
--- NOTE | 2020-07-15 15:57 | PDOC.HOSPP ---
- Subjective Encounter Date: 07/15/20 Subjective: Seen and examined at bedside. No acute distress. Mentation remains at baseline. Several bowel movement after aggressive bowel regimen. Advancing diet. UTI likely treated by now. - Objective Vital Signs & Weight: Vital Signs (12 hours) Temp Pulse Resp BP BP Pulse Ox 07/15/20 10:22 98.0 F 84 20 163/78 H 99 07/15/20 08:57 84 163/78 H 07/15/20 08:00 99 07/15/20 05:43 86 186/81 H Weight Admit Weight 156 lb 1 oz Weight 156 lb 1 oz I&O: 07/14/20 07/15/20 07/16/20 06:59 06:59 06:59 Intake Total 3033 1331 Output Total 1901 875 Balance 1132 456 Result Diagrams: 07/13/20 07:14 07/13/20 07:14 Additional Labs: Accuchecks 07/15/20 07/14/20 07/14/20 05:15 20:33 16:23 POC Glucose 164 H 157 H 86 07/13/20 15:57 POC Glucose 86 Hospitalist ROS - Review of Systems ROS unobtainable: due to mental status (Poor historian overall. Denies any new complains. Appears improved. Mentation back to baseline.) - Medication Medications: Active Medications Generic Name Dose Route Start Last Admin Trade Name Freq PRN Reason Stop Dose Admin Benztropine Mesylate 2 mg 07/11/20 09:00 07/15/20 08:57 Benztropine 1 Mg Tab PO 2 mg DAILY FRIEDA Administration Clonidine 0.1 mg 07/11/20 02:33 07/12/20 17:53 Clonidine 0.1 Mg Tab PO 0.1 mg BID PRN Administration SBP > 160 use second Enoxaparin Sodium 40 mg 07/11/20 21:00 07/14/20 20:25 Enoxaparin Sodium 40 Mg/0.4 Ml Syringe SC 40 mg 2100 FRIEDA Administration Famotidine 20 mg 07/11/20 09:00 07/15/20 08:57 Famotidine 20 Mg Tab PO 20 mg BID FRIEDA Administration Finasteride 5 mg 07/11/20 09:00 07/15/20 08:57 Finasteride 5 Mg Tab PO 5 mg DAILY FRIEDA Administration Guaifenesin/Dextromethorphan 15 ml 07/11/20 02:33 07/14/20 17:59 Guaifenesin Dm 100-10/5 Ml Udcup PO 15 ml Q4H PRN Administration Cough Hydralazine HCl 10 mg 07/11/20 14:18 07/15/20 05:43 Hydralazine 20 Mg/Ml Vial SLOW IVP 10 mg Q4H PRN Administration SBP > 180 and HR < 70 Ceftriaxone Sodium 1 gm/ 100 mls @ 200 mls/hr 07/11/20 21:00 07/14/20 20:26 Sodium Chloride IVPB 100 mls HS FRIEDA Administration Sodium Chloride 1,000 mls @ 100 mls/hr 07/12/20 12:30 07/15/20 11:05 Normal Saline 0.9% IV 1,000 mls .Q10H FRIEDA Administration Labetalol HCl 20 mg 07/11/20 02:33 07/14/20 20:44 Labetalol Hcl 100 Mg/20 Ml Vial SLOW IVP 4 ml Q4H PRN Administration SBP > 160 use first Lisinopril 5 mg 07/11/20 09:00 07/15/20 08:57 Lisinopril 5 Mg Tab PO 5 mg DAILY FRIEDA Administration Metoprolol Tartrate 50 mg 07/11/20 09:00 07/15/20 08:58 Metoprolol Tartrate 50 Mg Tab PO 50 mg BID FRIEDA Administration Olanzapine 20 mg 07/11/20 09:00 07/15/20 10:01 Olanzapine 5 Mg Tab PO 20 mg DAILY FRIEDA Administration Polyethylene Glycol 17 gm 07/15/20 09:00 07/15/20 08:58 Polyethylene Glycol 3350 17 Gm Packet PO Not Given DAILY FRIEDA Senna/Docusate Sodium 1 tab 07/11/20 09:00 07/15/20 08:57 Senokot S 8.6-50 Mg Tab PO 1 tab BID FRIEDA Administration Tamsulosin HCl 0.4 mg 07/11/20 09:00 07/15/20 08:57 Tamsulosin Hcl 0.4 Mg Cap PO 0.4 mg DAILY FRIEDA Administration Trazodone HCl 100 mg 07/11/20 21:00 07/14/20 20:25 Trazodone Hcl 50 Mg Tab PO 100 mg HS FRIEDA Administration - Exam General Appearance: NAD, awake alert Heart: RRR, no murmur, no gallops, no rubs, normal peripheral pulses Respiratory: CTAB, no wheezes, no rales, no ronchi, normal chest expansion, no tachypnea, normal percussion Gastrointestinal: soft, non-tender, non-distended, normal bowel sounds, no palpable masses, no hepatomegaly, no splenomegaly, no bruit Neurological: cranial nerve grossly intact, normal sensation to touch, no weakness, no focal deficits, no new deficit Psychiatric: oriented to person, oriented to place Hosp A/P - Plan A/P: Admitted for multiple complains including worsening mentation, poor oral intake, weakness & found to have possible UTI, severe constipation and incidental COVID19. # Severe constipation: Fecal impaction with retained stool throughout colon. Several manual disimpaction performed. On laxative regimen including Miralax and enemas. Has had several bowel movements since yesterday. Diet advanced but remains with poor appetite although no nausea or vomiting. # UTI: Non septic/toxic appearing. Urine cx growing Providencia sp. Blood cx negative. Completed course of IV Ceftriaxone. # COVID19: Abnormal chest xray with parenchymal changes to RLL but otherwise patient appears rather stable from pulmonary stand point. Continue with current precautions. # DIOMEDES: Resolved. Likely in setting of poor oral intake. Continue with IVF. Monitor renal function closely while on aggressive laxative regimen. # AMS: Resolved. Mentation appears to be back to baseline. Some degree of intermittent acute delirium in setting of above. He has poor insight about medical conditions. Underlying dementia likely summative in worsening mentation. Avoid delirium triggers. DISPOSITION: He is nearing discharge. Per family they will need assistance at home or patient will need to go to rehab. CM follows for discharge disposition.
[2020-07-15] MEDS: HumaLOG 300 UNITS/3 ML VIAL SC PRN (16:50)
[2020-07-15] MEDS: cefTRIAXone\\ROCEPHIN 1 GM in Sodium Chloride 0.9% 100 ML IVPB SCH (20:04)
[2020-07-15] MEDS: Enoxaparin Sodium 40 MG/0.4 ML SYRINGE SC SCH (20:05)
[2020-07-15] MEDS: traZODone HCl 50 MG TAB PO SCH ×2 (20:06→20:49)
[2020-07-16] MEDS: Sodium Chloride 0.9% 1,000 ML IV SCH (05:33)
[2020-07-16] MEDS: Benztropine 1 MG TAB PO SCH (08:35)
[2020-07-16] MEDS: Lisinopril 5 MG TAB PO SCH (08:35)
[2020-07-16] MEDS: Tamsulosin HCl 0.4 MG CAP PO SCH (08:35)
[2020-07-16] MEDS: Polyethylene Glycol 3350 17 GM Packet PO SCH ×2 (08:35→08:36)
[2020-07-16] MEDS: Famotidine 20 MG TAB PO SCH ×2 (08:35→20:17)
[2020-07-16] MEDS: Senokot S 8.6-50 MG TAB PO SCH ×2 (08:35→20:17)
[2020-07-16] MEDS: Finasteride 5 MG TAB PO SCH (08:36)
[2020-07-16] MEDS: Metoprolol Tartrate 50 MG TAB PO SCH ×2 (08:36→20:17)
[2020-07-16] MEDS: OLANZapine 5 MG TAB PO SCH (08:39)
--- NOTE | 2020-07-16 15:31 | PDOC.HOSPP ---
- Subjective Encounter Date: 07/16/20 Subjective: Seen at bedside in no acute distress. Refers feeling better and is tolerating diet. Denies any further nausea. His mentation likely back to baseline. Discharge planning for placement underway. - Objective Vital Signs & Weight: Vital Signs (12 hours) Temp Pulse Resp BP Pulse Ox 07/16/20 12:10 97.1 F L 68 18 178/76 H 97 07/16/20 08:36 98.4 F 87 18 175/96 H 96 07/16/20 08:35 80 07/16/20 08:00 96 Weight Admit Weight 156 lb 1 oz Weight 156 lb 1 oz I&O: 07/15/20 07/16/20 07/17/20 06:59 06:59 06:59 Intake Total 1331 360 Output Total 875 Balance 456 360 Result Diagrams: 07/13/20 07:14 07/13/20 07:14 Additional Labs: Accuchecks 07/16/20 07/16/20 07/15/20 11:30 04:08 20:10 POC Glucose 118 H 119 H 173 H 07/15/20 07/15/20 16:34 11:11 POC Glucose 164 H 139 H Hospitalist ROS - Review of Systems Constitutional: denies: fever, chills, sweats, weakness, malaise, other Respiratory: denies: cough, dry, shortness of breath, hemoptysis, SOB with excertion, pleuritic pain, sputum, wheezing, other Gastrointestinal: denies: nausea, vomiting, abdominal pain, diarrhea, constipation, melena, hematochezia, other Genitourinary: denies: dysuria, frequency, incontinence, hematuria, retention, other - Medication Medications: Active Medications Generic Name Dose Route Start Last Admin Trade Name Freq PRN Reason Stop Dose Admin Benztropine Mesylate 2 mg 07/11/20 09:00 07/16/20 08:35 Benztropine 1 Mg Tab PO 2 mg DAILY FRIEDA Administration Clonidine 0.1 mg 07/11/20 02:33 07/12/20 17:53 Clonidine 0.1 Mg Tab PO 0.1 mg BID PRN Administration SBP > 160 use second Enoxaparin Sodium 40 mg 07/11/20 21:00 07/15/20 20:05 Enoxaparin Sodium 40 Mg/0.4 Ml Syringe SC 40 mg 2100 FRIEDA Administration Famotidine 20 mg 07/11/20 09:00 07/16/20 08:35 Famotidine 20 Mg Tab PO 20 mg BID FRIEDA Administration Finasteride 5 mg 07/11/20 09:00 07/16/20 08:36 Finasteride 5 Mg Tab PO 5 mg DAILY FRIEDA Administration Guaifenesin/Dextromethorphan 15 ml 07/11/20 02:33 07/14/20 17:59 Guaifenesin Dm 100-10/5 Ml Udcup PO 15 ml Q4H PRN Administration Cough Hydralazine HCl 10 mg 07/11/20 14:18 07/15/20 05:43 Hydralazine 20 Mg/Ml Vial SLOW IVP 10 mg Q4H PRN Administration SBP > 180 and HR < 70 Insulin Human Lispro 0 units 07/11/20 02:39 07/15/20 16:50 Humalog 300 Units/3 Ml Vial SC 2 unit .MILD SLIDING SCALE PRN Administration Mild Correctional Scale Labetalol HCl 20 mg 07/11/20 02:33 07/14/20 20:44 Labetalol Hcl 100 Mg/20 Ml Vial SLOW IVP 4 ml Q4H PRN Administration SBP > 160 use first Metoprolol Tartrate 50 mg 07/11/20 09:00 07/16/20 08:36 Metoprolol Tartrate 50 Mg Tab PO 50 mg BID FRIEDA Administration Olanzapine 20 mg 07/11/20 09:00 07/16/20 08:39 Olanzapine 5 Mg Tab PO 20 mg DAILY FRIEDA Administration Polyethylene Glycol 17 gm 07/15/20 09:00 07/16/20 08:36 Polyethylene Glycol 3350 17 Gm Packet PO 17 gm DAILY FRIEDA Administration Senna/Docusate Sodium 1 tab 07/11/20 09:00 07/16/20 08:35 Senokot S 8.6-50 Mg Tab PO 1 tab BID FRIEDA Administration Tamsulosin HCl 0.4 mg 07/11/20 09:00 07/16/20 08:35 Tamsulosin Hcl 0.4 Mg Cap PO 0.4 mg DAILY FRIEDA Administration Trazodone HCl 100 mg 07/11/20 21:00 07/15/20 20:49 Trazodone Hcl 50 Mg Tab PO Not Given HS FRIEDA - Exam General Appearance: NAD, awake alert Eye: PERRL, anicteric sclera Heart: RRR, no murmur, no gallops, no rubs, normal peripheral pulses Respiratory: CTAB, no wheezes, no rales, no ronchi, normal chest expansion, no tachypnea, normal percussion Gastrointestinal: soft, non-tender, non-distended, normal bowel sounds, no palpable masses, no hepatomegaly, no splenomegaly, no bruit Neurological: cranial nerve grossly intact, normal sensation to touch, no weakness, no focal deficits, no new deficit Psychiatric - other findings: Mentation back to baseline Hosp A/P - Plan A/P: Admitted for multiple complains including worsening mentation, poor oral intake, weakness & found to have possible UTI, severe constipation and incidental COVID19. # Severe constipation: Resolved with aggressive bowel regimen. Tolerating diet. Overall significantly improved. # UTI: Non septic/toxic appearing. Urine cx growing Providencia sp. Blood cx negative. Completed course of IV Ceftriaxone. # COVID19: Abnormal chest xray with parenchymal changes to RLL but otherwise patient appears rather stable from pulmonary stand point. Continue with current precautions. # DIOMEDES: Resolved. Likely in setting of poor oral intake. Continue with IVF. Monitor renal function closely while on aggressive laxative regimen. # AMS: Resolved. Mentation appears to be back to baseline. Some degree of intermittent acute delirium in setting of above. He has poor insight about medical conditions. Underlying dementia likely summative in worsening mentation. Avoid delirium triggers. DISPOSITION: Medically stable for discharge. Per family they will need assistance at home or patient will need to go to rehab. CM follows for discharge disposition.
[2020-07-16] MEDS: traZODone HCl 50 MG TAB PO SCH (20:17)
[2020-07-16] MEDS: Enoxaparin Sodium 40 MG/0.4 ML SYRINGE SC SCH (20:17)
[2020-07-16] MEDS: Guaifenesin DM 100-10/5 ML UDCUP PO PRN (20:37)
[2020-07-17] MEDS: Polyethylene Glycol 3350 17 GM Packet PO SCH (07:47)
[2020-07-17] MEDS: Metoprolol Tartrate 50 MG TAB PO SCH ×2 (07:48→22:01)
[2020-07-17] MEDS: Senokot S 8.6-50 MG TAB PO SCH ×2 (07:48→22:02)
[2020-07-17] MEDS: Lisinopril 20 MG TAB PO SCH (07:48)
[2020-07-17] MEDS: Tamsulosin HCl 0.4 MG CAP PO SCH (07:48)
[2020-07-17] MEDS: Famotidine 20 MG TAB PO SCH ×2 (07:48→22:01)
[2020-07-17] MEDS: Finasteride 5 MG TAB PO SCH (07:49)
[2020-07-17] MEDS: Benztropine 1 MG TAB PO SCH (07:54)
[2020-07-17] MEDS: OLANZapine 5 MG TAB PO SCH (07:55)
--- NOTE | 2020-07-17 14:13 | PDOC.HOSPP ---
- Subjective Encounter Date: 07/17/20 Encounter Time: 08:15 Subjective: feels better no sob, has ambulated with PT yesterday - Objective Vital Signs & Weight: Vital Signs (12 hours) Temp Pulse Resp BP BP Pulse Ox Pulse Ox 07/17/20 11:54 98.3 F 69 16 124/72 98 07/17/20 10:12 95 07/17/20 08:00 98 07/17/20 07:48 163/78 H 07/17/20 04:00 152/79 H Pulse Ox Pulse Ox 07/17/20 11:54 07/17/20 10:12 97 97 07/17/20 08:00 07/17/20 07:48 07/17/20 04:00 Weight Admit Weight 156 lb 1 oz Weight 156 lb 1 oz I&O: 07/16/20 07/17/20 07/18/20 06:59 06:59 06:59 Intake Total 1760 1298 Output Total 1050 Balance 1760 248 Result Diagrams: 07/13/20 07:14 07/13/20 07:14 Additional Labs: Accuchecks 07/17/20 07/17/20 07/16/20 11:28 04:05 20:22 POC Glucose 135 H 143 H 162 H 07/16/20 16:12 POC Glucose 177 H Hospitalist ROS - Medication Medications: Active Medications Generic Name Dose Route Start Last Admin Trade Name Freq PRN Reason Stop Dose Admin Benztropine Mesylate 2 mg 07/11/20 09:00 07/17/20 07:54 Benztropine 1 Mg Tab PO 2 mg DAILY FRIEDA Administration Clonidine 0.1 mg 07/11/20 02:33 07/12/20 17:53 Clonidine 0.1 Mg Tab PO 0.1 mg BID PRN Administration SBP > 160 use second Enoxaparin Sodium 40 mg 07/11/20 21:00 07/16/20 20:17 Enoxaparin Sodium 40 Mg/0.4 Ml Syringe SC 40 mg 2100 FRIEDA Administration Famotidine 20 mg 07/11/20 09:00 07/17/20 07:48 Famotidine 20 Mg Tab PO 20 mg BID FRIEDA Administration Finasteride 5 mg 07/11/20 09:00 07/17/20 07:49 Finasteride 5 Mg Tab PO 5 mg DAILY FRIEDA Administration Guaifenesin/Dextromethorphan 15 ml 07/11/20 02:33 07/14/20 17:59 Guaifenesin Dm 100-10/5 Ml Udcup PO 15 ml Q4H PRN Administration Cough Hydralazine HCl 10 mg 07/11/20 14:18 07/15/20 05:43 Hydralazine 20 Mg/Ml Vial SLOW IVP 10 mg Q4H PRN Administration SBP > 180 and HR < 70 Insulin Human Lispro 0 units 07/11/20 02:39 07/15/20 16:50 Humalog 300 Units/3 Ml Vial SC 2 unit .MILD SLIDING SCALE PRN Administration Mild Correctional Scale Labetalol HCl 20 mg 07/11/20 02:33 07/14/20 20:44 Labetalol Hcl 100 Mg/20 Ml Vial SLOW IVP 4 ml Q4H PRN Administration SBP > 160 use first Lisinopril 20 mg 07/17/20 09:00 07/17/20 07:48 Lisinopril 20 Mg Tab PO 20 mg DAILY FRIEDA Administration Metoprolol Tartrate 50 mg 07/11/20 09:00 07/17/20 07:48 Metoprolol Tartrate 50 Mg Tab PO 50 mg BID FRIEDA Administration Olanzapine 20 mg 07/11/20 09:00 07/17/20 07:55 Olanzapine 5 Mg Tab PO 20 mg DAILY FRIEDA Administration Polyethylene Glycol 17 gm 07/15/20 09:00 07/17/20 07:47 Polyethylene Glycol 3350 17 Gm Packet PO 17 gm DAILY FRIEDA Administration Senna/Docusate Sodium 1 tab 07/11/20 09:00 07/17/20 07:48 Senokot S 8.6-50 Mg Tab PO 1 tab BID FRIEDA Administration Tamsulosin HCl 0.4 mg 07/11/20 09:00 07/17/20 07:48 Tamsulosin Hcl 0.4 Mg Cap PO 0.4 mg DAILY FRIEDA Administration Trazodone HCl 100 mg 07/11/20 21:00 07/16/20 20:17 Trazodone Hcl 50 Mg Tab PO 100 mg HS FRIEDA Administration - Exam General Appearance: awake alert Eye: PERRL, anicteric sclera ENT: no oropharyngeal lesions, moist mucosa Neck: supple, no JVD Heart: no murmur, no gallops Respiratory: no wheezes, no rales, rhonchi Gastrointestinal: soft, non-tender, non-distended, normal bowel sounds Extremities: no cyanosis, no edema Neurological: cranial nerve grossly intact, no focal deficits Psychiatric: normal affect, A&O x 3 Hosp A/P (1) Metabolic encephalopathy Code(s): G93.41 - METABOLIC ENCEPHALOPATHY Status: Resolved (2) UTI (urinary tract infection) Status: Resolved Qualifiers: Urinary tract infection type: acute cystitis Hematuria presence: without hematuria Qualified Code(s): N30.00 - Acute cystitis without hematuria (3) COVID-19 virus infection Code(s): U07.1 - COVID-19 Status: Acute (4) Constipation Code(s): K59.00 - CONSTIPATION, UNSPECIFIED Status: Resolved Qualifiers: Constipation type: slow transit constipation Qualified Code(s): K59.01 - S low transit constipation (5) BPH (benign prostatic hyperplasia) Code(s): N40.0 - BENIGN PROSTATIC HYPERPLASIA WITHOUT LOWER URINRY TRACT SYMP Status: Chronic Qualifiers: Lower urinary tract symptom presence: symptoms absent Qualified Code(s): N40.0 - Benign prostatic hyperplasia without lower urinary tract symptoms (6) HTN (hypertension) Code(s): I10 - ESSENTIAL (PRIMARY) HYPERTENSION Status: Chronic Qualifiers: Hypertension type: essential hypertension Qualified Code(s): I10 - Essential (primary) hypertension (7) Chronic anemia Code(s): D64.9 - ANEMIA, UNSPECIFIED Status: Chronic (8) DM type 2 (diabetes mellitus, type 2) Status: Chronic Qualifiers: Diabetes mellitus superintendent marine oil terminal insulin use: without skilled nursing use - Plan hemostable completed full course of ceftriaxone for uti is at baseline cognitive function likely has ambulated well with PT nita cant take care of him at home, awaiting placement continue lisinopril, lopressor, zyprexa, trazadone, miralax, proscar, flomax may dc anytime if placement is ready
[2020-07-17] MEDS: Enoxaparin Sodium 40 MG/0.4 ML SYRINGE SC SCH (22:01)
[2020-07-17] MEDS: traZODone HCl 50 MG TAB PO SCH (22:02)
[2020-07-18] MEDS: Benztropine 1 MG TAB PO SCH (09:06)
[2020-07-18] MEDS: Lisinopril 20 MG TAB PO SCH (09:06)
[2020-07-18] MEDS: Metoprolol Tartrate 50 MG TAB PO SCH ×2 (09:06→21:03)
[2020-07-18] MEDS: Polyethylene Glycol 3350 17 GM Packet PO SCH (09:06)
[2020-07-18] MEDS: Tamsulosin HCl 0.4 MG CAP PO SCH (09:06)
[2020-07-18] MEDS: Famotidine 20 MG TAB PO SCH ×2 (09:06→21:03)
[2020-07-18] MEDS: Finasteride 5 MG TAB PO SCH (09:06)
[2020-07-18] MEDS: Senokot S 8.6-50 MG TAB PO SCH ×2 (09:06→21:03)
[2020-07-18] MEDS: OLANZapine 5 MG TAB PO SCH (09:07)
--- NOTE | 2020-07-18 12:30 | PDOC.HOSPP ---
- Subjective Encounter Date: 07/18/20 Encounter Time: 08:30 Subjective: no complaints, feels good, eating well ambulating with PT - Objective Vital Signs & Weight: Vital Signs (12 hours) Temp Pulse Resp BP BP Pulse Ox 07/18/20 11:20 97.8 F 66 16 150/82 H 99 07/18/20 09:06 163/78 H 07/18/20 08:00 97.9 F 71 16 155/84 H 97 Weight Admit Weight 156 lb 1 oz Weight 156 lb 1 oz I&O: 07/17/20 07/18/20 07/19/20 06:59 06:59 06:59 Intake Total 1298 1230 240 Output Total 1050 800 Balance 248 430 240 Result Diagrams: 07/13/20 07:14 07/13/20 07:14 Additional Labs: Accuchecks 07/18/20 07/18/20 07/17/20 11:16 04:54 22:06 POC Glucose 131 H 139 H 263 H 07/17/20 16:18 POC Glucose 150 H Hospitalist ROS - Medication Medications: Active Medications Generic Name Dose Route Start Last Admin Trade Name Freq PRN Reason Stop Dose Admin Acetaminophen 650 mg 07/11/20 02:33 07/17/20 17:08 Acetaminophen 325 Mg Tab PO 650 mg Q4H PRN Administration Headache/Fever/Mild Pain (1-3) Benztropine Mesylate 2 mg 07/11/20 09:00 07/18/20 09:06 Benztropine 1 Mg Tab PO 2 mg DAILY FRIEDA Administration Clonidine 0.1 mg 07/11/20 02:33 07/12/20 17:53 Clonidine 0.1 Mg Tab PO 0.1 mg BID PRN Administration SBP > 160 use second Enoxaparin Sodium 40 mg 07/11/20 21:00 07/17/20 22:01 Enoxaparin Sodium 40 Mg/0.4 Ml Syringe SC 40 mg 2100 FRIEDA Administration Famotidine 20 mg 07/11/20 09:00 07/18/20 09:06 Famotidine 20 Mg Tab PO 20 mg BID FRIEDA Administration Finasteride 5 mg 07/11/20 09:00 07/18/20 09:06 Finasteride 5 Mg Tab PO 5 mg DAILY FRIEDA Administration Guaifenesin/Dextromethorphan 15 ml 07/11/20 02:33 07/14/20 17:59 Guaifenesin Dm 100-10/5 Ml Udcup PO 15 ml Q4H PRN Administration Cough Hydralazine HCl 10 mg 07/11/20 14:18 07/15/20 05:43 Hydralazine 20 Mg/Ml Vial SLOW IVP 10 mg Q4H PRN Administration SBP > 180 and HR < 70 Insulin Human Lispro 0 units 07/11/20 02:39 07/15/20 16:50 Humalog 300 Units/3 Ml Vial SC 2 unit .MILD SLIDING SCALE PRN Administration Mild Correctional Scale Labetalol HCl 20 mg 07/11/20 02:33 07/14/20 20:44 Labetalol Hcl 100 Mg/20 Ml Vial SLOW IVP 4 ml Q4H PRN Administration SBP > 160 use first Lisinopril 20 mg 07/17/20 09:00 07/18/20 09:06 Lisinopril 20 Mg Tab PO 20 mg DAILY FRIEDA Administration Metoprolol Tartrate 50 mg 07/11/20 09:00 07/18/20 09:06 Metoprolol Tartrate 50 Mg Tab PO 50 mg BID FRIEDA Administration Olanzapine 20 mg 07/11/20 09:00 07/18/20 09:07 Olanzapine 5 Mg Tab PO 20 mg DAILY FRIEDA Administration Polyethylene Glycol 17 gm 07/15/20 09:00 07/18/20 09:06 Polyethylene Glycol 3350 17 Gm Packet PO 17 gm DAILY FRIEDA Administration Senna/Docusate Sodium 1 tab 07/11/20 09:00 07/18/20 09:06 Senokot S 8.6-50 Mg Tab PO 1 tab BID FRIEDA Administration Tamsulosin HCl 0.4 mg 07/11/20 09:00 07/18/20 09:06 Tamsulosin Hcl 0.4 Mg Cap PO 0.4 mg DAILY FRIEDA Administration Trazodone HCl 100 mg 07/11/20 21:00 07/17/20 22:02 Trazodone Hcl 50 Mg Tab PO 100 mg HS FRIEDA Administration - Exam General Appearance: awake alert Eye: PERRL, anicteric sclera ENT: no oropharyngeal lesions, moist mucosa Neck: supple, no JVD Heart: RRR, no murmur Respiratory: no wheezes, no rales Gastrointestinal: soft, non-tender, non-distended, normal bowel sounds Extremities: no cyanosis, no edema Neurological: cranial nerve grossly intact, no focal deficits Psychiatric: A&O x 3 Hosp A/P (1) Metabolic encephalopathy Code(s): G93.41 - METABOLIC ENCEPHALOPATHY Status: Resolved (2) UTI (urinary tract infection) Status: Resolved Qualifiers: Urinary tract infection type: acute cystitis Hematuria presence: without hematuria Qualified Code(s): N30.00 - Acute cystitis without hematuria (3) COVID-19 virus infection Code(s): U07.1 - COVID-19 Status: Acute (4) Constipation Code(s): K59.00 - CONSTIPATION, UNSPECIFIED Status: Resolved Qualifiers: Constipation type: slow transit constipation Qualified Code(s): K59.01 - Slow transit constipation (5) BPH (benign prostatic hyperplasia) Code(s): N40.0 - BENIGN PROSTATIC HYPERPLASIA WITHOUT LOWER URINRY TRACT SYMP Status: Chronic Qualifiers: Lower urinary tract symptom presence: symptoms absent Qualified Code(s): N40.0 - Benign prostatic hyperplasia without lower urinary tract symptoms (6) HTN (hypertension) Code(s): I10 - ESSENTIAL (PRIMARY) HYPERTENSION Status: Chronic Qualifiers: Hypertension type: essential hypertension Qualified Code(s): I10 - Essential (primary) hypertension (7) Chronic anemia Code(s): D64.9 - ANEMIA, UNSPECIFIED Status: Chronic (8) DM type 2 (diabetes mellitus, type 2) Status: Chronic Qualifiers: Diabetes mellitus termite treater helper insulin use: without termite treater helper use - Plan hemostable completed full course of ceftriaxone for uti is at baseline cognitive function likely has ambulated well with PT nita cant take care of him at home, awaiting placement continue lisinopril, lopressor, zyprexa, trazadone, miralax, proscar, flomax may dc anytime if placement is ready
[2020-07-18] MEDS: Enoxaparin Sodium 40 MG/0.4 ML SYRINGE SC SCH (21:03)
[2020-07-18] MEDS: traZODone HCl 50 MG TAB PO SCH (21:04)
[2020-07-19] MEDS: Polyethylene Glycol 3350 17 GM Packet PO SCH ×2 (09:12→09:38)
[2020-07-19] MEDS: Senokot S 8.6-50 MG TAB PO SCH ×2 (09:12→21:35)
[2020-07-19] MEDS: Tamsulosin HCl 0.4 MG CAP PO SCH (09:12)
[2020-07-19] MEDS: Metoprolol Tartrate 50 MG TAB PO SCH ×2 (09:12→21:35)
[2020-07-19] MEDS: Lisinopril 20 MG TAB PO SCH (09:12)
[2020-07-19] MEDS: Famotidine 20 MG TAB PO SCH ×2 (09:13→21:35)
[2020-07-19] MEDS: Finasteride 5 MG TAB PO SCH (09:13)
[2020-07-19] MEDS: Benztropine 1 MG TAB PO SCH (09:19)
[2020-07-19] MEDS: OLANZapine 5 MG TAB PO SCH (09:20)
--- NOTE | 2020-07-19 13:47 | PDOC.HOSPP ---
- Subjective Encounter Date: 07/19/20 Encounter Time: 11:15 Subjective: awake, no complaints feels good - Objective Vital Signs & Weight: Vital Signs (12 hours) Temp Pulse Resp BP BP Pulse Ox 07/19/20 09:39 62 07/19/20 09:12 154/78 H 07/19/20 08:16 98.1 F 59 L 18 154/78 H 99 07/19/20 08:00 99 07/19/20 04:00 97.3 F L 53 L 20 136/72 100 Weight Admit Weight 156 lb 1 oz Weight 156 lb 1 oz I&O: 07/18/20 07/19/20 07/20/20 06:59 06:59 06:59 Intake Total 1230 1080 Output Total 800 200 Balance 430 880 Result Diagrams: 07/13/20 07:14 07/13/20 07:14 Additional Labs: Accuchecks 07/19/20 07/19/20 07/18/20 11:05 04:31 20:00 POC Glucose 130 H 115 H 141 H 07/18/20 14:59 POC Glucose 131 H Hospitalist ROS - Medication Medications: Active Medications Generic Name Dose Route Start Last Admin Trade Name Freq PRN Reason Stop Dose Admin Acetaminophen 650 mg 07/11/20 02:33 07/17/20 17:08 Acetaminophen 325 Mg Tab PO 650 mg Q4H PRN Administration Headache/Fever/Mild Pain (1-3) Benztropine Mesylate 2 mg 07/11/20 09:00 07/19/20 09:19 Benztropine 1 Mg Tab PO 2 mg DAILY FRIEDA Administration Clonidine 0.1 mg 07/11/20 02:33 07/12/20 17:53 Clonidine 0.1 Mg Tab PO 0.1 mg BID PRN Administration SBP > 160 use second Enoxaparin Sodium 40 mg 07/11/20 21:00 07/18/20 21:03 Enoxaparin Sodium 40 Mg/0.4 Ml Syringe SC 40 mg 2100 FRIEDA Administration Famotidine 20 mg 07/11/20 09:00 07/19/20 09:13 Famotidine 20 Mg Tab PO 20 mg BID FRIEDA Administration Finasteride 5 mg 07/11/20 09:00 07/19/20 09:13 Finasteride 5 Mg Tab PO 5 mg DAILY FRIEDA Administration Guaifenesin/Dextromethorphan 15 ml 07/11/20 02:33 07/14/20 17:59 Guaifenesin Dm 100-10/5 Ml Udcup PO 15 ml Q4H PRN Administration Cough Hydralazine HCl 10 mg 07/11/20 14:18 07/15/20 05:43 Hydralazine 20 Mg/Ml Vial SLOW IVP 10 mg Q4H PRN Administration SBP > 180 and HR < 70 Insulin Human Lispro 0 units 07/11/20 02:39 07/15/20 16:50 Humalog 300 Units/3 Ml Vial SC 2 unit .MILD SLIDING SCALE PRN Administration Mild Correctional Scale Labetalol HCl 20 mg 07/11/20 02:33 07/14/20 20:44 Labetalol Hcl 100 Mg/20 Ml Vial SLOW IVP 4 ml Q4H PRN Administration SBP > 160 use first Lisinopril 20 mg 07/17/20 09:00 07/19/20 09:12 Lisinopril 20 Mg Tab PO 20 mg DAILY FRIEDA Administration Metoprolol Tartrate 50 mg 07/11/20 09:00 07/19/20 09:12 Metoprolol Tartrate 50 Mg Tab PO 50 mg BID FRIEDA Administration Olanzapine 20 mg 07/11/20 09:00 07/19/20 09:20 Olanzapine 5 Mg Tab PO 20 mg DAILY FRIEDA Administration Polyethylene Glycol 17 gm 07/15/20 09:00 07/19/20 09:38 Polyethylene Glycol 3350 17 Gm Packet PO Not Given DAILY FRIEDA Senna/Docusate Sodium 1 tab 07/11/20 09:00 07/19/20 09:12 Senokot S 8.6-50 Mg Tab PO 1 tab BID FRIEDA Administration Tamsulosin HCl 0.4 mg 07/11/20 09:00 07/19/20 09:12 Tamsulosin Hcl 0.4 Mg Cap PO 0.4 mg DAILY FRIEDA Administration Trazodone HCl 100 mg 07/11/20 21:00 07/18/20 21:04 Trazodone Hcl 50 Mg Tab PO 100 mg HS FRIEDA Administration - Exam General Appearance: awake alert Eye: PERRL, anicteric sclera ENT: no oropharyngeal lesions, moist mucosa Neck: supple, no JVD Heart: RRR, no murmur Respiratory: no wheezes, no rales Gastrointestinal: soft, non-tender, non-distended, normal bowel sounds Extremities: no cyanosis, no edema Neurological: cranial nerve grossly intact, no focal deficits Psychiatric: A&O x 3 Hosp A/P (1) Metabolic encephalopathy Code(s): G93.41 - METABOLIC ENCEPHALOPATHY Status: Resolved (2) UTI (urinary tract infection) Status: Resolved Qualifiers: Urinary tract infection type: acute cystitis Hematuria presence: without hematuria Qualified Code(s): N30.00 - Acute cystitis without hematuria (3) COVID-19 virus infection Code(s): U07.1 - COVID-19 Status: Acute (4) Constipation Code(s): K59.00 - CONSTIPATION, UNSPECIFIED Status: Resolved Qualifiers: Constipation type: slow transit constipation Qualified Code(s): K59.01 - Slow transit constipation (5) BPH (benign prostatic hyperplasia) Code(s): N40.0 - BENIGN PROSTATIC HYPERPLASIA WITHOUT LOWER URINRY TRACT SYMP Status: Chronic Qualifiers: Lower urinary tract symptom presence: symptoms absent Qualified Code(s): N40.0 - Benign prostatic hyperplasia without lower urinary tract symptoms (6) HTN (hypertension) Code(s): I10 - ESSENTIAL (PRIMARY) HYPERTENSION Status: Chronic Qualifiers: Hypertension type: essential hypertension Qualified Code(s): I10 - Essential (primary) hypertension (7) Chronic anemia Code(s): D64.9 - ANEMIA, UNSPECIFIED Status: Chronic (8) DM type 2 (diabetes mellitus, type 2) Status: Chronic Qualifiers: Diabetes mellitus terminal operator insulin use: without terminal operator use - Plan hemostable completed full course of ceftriaxone for uti is at baseline cognitive function has ambulated well with PT nita yost take care of him at home, awaiting placement continue lisinopril, lopressor, zyprexa, trazadone, miralax, proscar, flomax may dc anytime if placement is ready
[2020-07-19] MEDS: Enoxaparin Sodium 40 MG/0.4 ML SYRINGE SC SCH (21:35)
[2020-07-19] MEDS: traZODone HCl 50 MG TAB PO SCH (21:44)
[2020-07-20] MEDS: Senokot S 8.6-50 MG TAB PO SCH ×2 (08:43→20:00)
[2020-07-20] MEDS: Benztropine 1 MG TAB PO SCH (08:43)
[2020-07-20] MEDS: Tamsulosin HCl 0.4 MG CAP PO SCH (08:44)
[2020-07-20] MEDS: Famotidine 20 MG TAB PO SCH ×2 (08:44→20:00)
[2020-07-20] MEDS: Metoprolol Tartrate 50 MG TAB PO SCH ×2 (08:44→20:00)
[2020-07-20] MEDS: Lisinopril 20 MG TAB PO SCH (08:44)
[2020-07-20] MEDS: Finasteride 5 MG TAB PO SCH (08:44)
[2020-07-20] MEDS: Polyethylene Glycol 3350 17 GM Packet PO SCH (08:45)
[2020-07-20] MEDS: OLANZapine 5 MG TAB PO SCH (08:46)
--- NOTE | 2020-07-20 13:49 | PDOC.HOSPP ---
- Subjective Encounter Date: 07/20/20 Encounter Time: 10:00 Subjective: no complaints, feels good - Objective Vital Signs & Weight: Vital Signs (12 hours) Temp Pulse Resp BP BP Pulse Ox 07/20/20 08:48 97.8 F 62 20 121/68 97 07/20/20 08:44 121/68 07/20/20 08:00 97 Weight Admit Weight 156 lb 1 oz Weight 156 lb 1 oz I&O: 07/19/20 07/20/20 07/21/20 06:59 06:59 06:59 Intake Total 1080 240 Output Total 200 250 Balance 880 -10 Result Diagrams: 07/13/20 07:14 07/13/20 07:14 Additional Labs: Accuchecks 07/20/20 07/19/20 07/19/20 04:01 20:30 16:14 POC Glucose 113 H 162 H 145 H Hospitalist ROS - Medication Medications: Active Medications Generic Name Dose Route Start Last Admin Trade Name Freq PRN Reason Stop Dose Admin Acetaminophen 650 mg 07/11/20 02:33 07/17/20 17:08 Acetaminophen 325 Mg Tab PO 650 mg Q4H PRN Administration Headache/Fever/Mild Pain (1-3) Benztropine Mesylate 2 mg 07/11/20 09:00 07/20/20 08:43 Benztropine 1 Mg Tab PO 2 mg DAILY FRIEDA Administration Clonidine 0.1 mg 07/11/20 02:33 07/12/20 17:53 Clonidine 0.1 Mg Tab PO 0.1 mg BID PRN Administration SBP > 160 use second Enoxaparin Sodium 40 mg 07/11/20 21:00 07/19/20 21:35 Enoxaparin Sodium 40 Mg/0.4 Ml Syringe SC 40 mg 2100 FRIEDA Administration Famotidine 20 mg 07/11/20 09:00 07/20/20 08:44 Famotidine 20 Mg Tab PO 20 mg BID FRIEDA Administration Finasteride 5 mg 07/11/20 09:00 07/20/20 08:44 Finasteride 5 Mg Tab PO 5 mg DAILY FRIEDA Administration Guaifenesin/Dextromethorphan 15 ml 07/11/20 02:33 07/14/20 17:59 Guaifenesin Dm 100-10/5 Ml Udcup PO 15 ml Q4H PRN Administration Cough Hydralazine HCl 10 mg 07/11/20 14:18 07/15/20 05:43 Hydralazine 20 Mg/Ml Vial SLOW IVP 10 mg Q4H PRN Administration SBP > 180 and HR < 70 Insulin Human Lispro 0 units 07/11/20 02:39 07/15/20 16:50 Humalog 300 Units/3 Ml Vial SC 2 unit .MILD SLIDING SCALE PRN Administration Mild Correctional Scale Labetalol HCl 20 mg 07/11/20 02:33 07/14/20 20:44 Labetalol Hcl 100 Mg/20 Ml Vial SLOW IVP 4 ml Q4H PRN Administration SBP > 160 use first Lisinopril 20 mg 07/17/20 09:00 07/20/20 08:44 Lisinopril 20 Mg Tab PO 20 mg DAILY FRIEDA Administration Metoprolol Tartrate 50 mg 07/11/20 09:00 07/20/20 08:44 Metoprolol Tartrate 50 Mg Tab PO 50 mg BID FRIEDA Administration Olanzapine 20 mg 07/11/20 09:00 07/20/20 08:46 Olanzapine 5 Mg Tab PO 20 mg DAILY FRIEDA Administration Polyethylene Glycol 17 gm 07/15/20 09:00 07/20/20 08:45 Polyethylene Glycol 3350 17 Gm Packet PO Not Given DAILY FRIEDA Senna/Docusate Sodium 1 tab 07/11/20 09:00 07/20/20 08:43 Senokot S 8.6-50 Mg Tab PO 1 tab BID FRIEDA Administration Tamsulosin HCl 0.4 mg 07/11/20 09:00 07/20/20 08:44 Tamsulosin Hcl 0.4 Mg Cap PO 0.4 mg DAILY FRIEDA Administration Trazodone HCl 100 mg 07/11/20 21:00 07/19/20 21:44 Trazodone Hcl 50 Mg Tab PO 100 mg HS FRIEDA Administration - Exam General Appearance: awake alert Eye: PERRL, anicteric sclera ENT: no oropharyngeal lesions, moist mucosa Neck: supple, no JVD Heart: RRR, no murmur Respiratory: no wheezes, no rales Gastrointestinal: soft, non-tender, non-distended, normal bowel sounds Extremities: no cyanosis, no edema Neurological: cranial nerve grossly intact, no focal deficits Hosp A/P (1) Metabolic encephalopathy Code(s): G93.41 - METABOLIC ENCEPHALOPATHY Status: Resolved (2) UTI (urinary tract infection) Status: Resolved Qualifiers: Urinary tract infection type: acute cystitis Hematuria presence: without hematuria Qualified Code(s): N30.00 - Acute cystitis without hematuria (3) COVID-19 virus infection Code(s): U07.1 - COVID-19 Status: Acute (4) Constipation Code(s): K59.00 - CONSTIPATION, UNSPECIFIED Status: Resolved Qualifiers: Constipation type: slow transit constipation Qualified Code(s): K59.01 - Slow transit constipation (5) BPH (benign prostatic hyperplasia) Code(s): N40.0 - BENIGN PROSTATIC HYPERPLASIA WITHOUT LOWER URINRY TRACT SYMP Status: Chronic Qualifiers: Lower urinary tract symptom presence: symptoms absent Qualified Code(s): N40.0 - Benign prostatic hyperplasia without lower urinary tract symptoms (6) HTN (hypertension) Code(s): I10 - ESSENTIAL (PRIMARY) HYPERTENSION Status: Chronic Qualifiers: Hypertension type: essential hypertension Qualified Code(s): I10 - Essential (primary) hypertension (7) Chronic anemia Code(s): D64.9 - ANEMIA, UNSPECIFIED Status: Chronic (8) DM type 2 (diabetes mellitus, type 2) Status: Chronic Qualifiers: Diabetes mellitus mcc insulin 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
[2020-07-20] MEDS: Enoxaparin Sodium 40 MG/0.4 ML SYRINGE SC SCH (19:59)
[2020-07-20] MEDS: traZODone HCl 50 MG TAB PO SCH (20:00)
[2020-07-21] MEDS: Tamsulosin HCl 0.4 MG CAP PO SCH (08:42)
[2020-07-21] MEDS: Metoprolol Tartrate 50 MG TAB PO SCH ×2 (08:42→20:51)
[2020-07-21] MEDS: Benztropine 1 MG TAB PO SCH (08:42)
[2020-07-21] MEDS: Lisinopril 20 MG TAB PO SCH (08:42)
[2020-07-21] MEDS: Finasteride 5 MG TAB PO SCH (08:42)
[2020-07-21] MEDS: Famotidine 20 MG TAB PO SCH ×2 (08:42→20:51)
[2020-07-21] MEDS: Senokot S 8.6-50 MG TAB PO SCH ×2 (08:43→20:51)
[2020-07-21] MEDS: Polyethylene Glycol 3350 17 GM Packet PO SCH (08:43)
[2020-07-21] MEDS: OLANZapine 5 MG TAB PO SCH (08:43)
[2020-07-21] MEDS: HumaLOG 300 UNITS/3 ML VIAL SC PRN (11:35)
--- NOTE | 2020-07-21 15:00 | DIS ---
DATE OF ADMISSION: 07/13/2020 DATE OF DISCHARGE: 07/21/2020 DISCHARGE DISPOSITION: Home with Home Health. PRIMARY DISCHARGE DIAGNOSES: 1. Acute metabolic encephalopathy, resolved. 2. Urinary tract infection, resolved. 3. COVID-19 virus infection with no pneumonia. 4. Constipation on arrival, resolved. 5. Benign prostatic hyperplasia. 6. Hypertension. 7. Chronic anemia. 8. Diabetes mellitus type 2. PROCEDURES DONE DURING HOSPITALIZATION: Abdominal and pelvic CAT scan done on the day of admission showed findings of constipation with markedly distended sigmoid colon and rectum. Chest x-ray done showed no acute infiltrate. CT brain without contrast done showed no acute intracranial abnormality. Blood cultures x2, no growth. Urine culture grew Providencia rettgeri sensitive to cephalosporins, quinolones, and sulfa. H and H of 8 and 23, platelet count 125, MCV 91 with a white count of 4. COVID-19 PCR was positive on 07/11/2020. INPATIENT CONSULT: Dr. Larsen for General Surgery. DISCHARGE MEDICATIONS: 1. Finasteride 5 mg p.o. daily. 2. Flomax 0.4 mg p.o. daily. 3. Metoprolol tartrate 50 mg twice daily. 4. Trazodone 100 mg p.o. at bedtime. 5. Benztropine 2 mg p.o. daily. 6. Metformin 500 mg p.o. twice daily. 7. MiraLAX 17 g daily. 8. Olanzapine 20 mg daily. 9. Lisinopril 20 mg daily. ALLERGIES: NAPROSYN. DISCHARGE PLAN: The patient to follow up with Dr. Rae, his primary care physician in 1 week. BRIEF COURSE DURING HOSPITALIZATION: The patient initially got admitted on the with confusion, generalized weakness, and reduced oral intake. Initial CAT scan done revealed significant constipation. Also, the patient had elevated creatinine of 1.8 and was dehydrated. He has had multiple enemas and bowel regimen was placed, which has helped his constipation. The patient had incidental finding of COVID-19 being positive. His x-rays did not reveal any pneumonia. His confusion slowly started to clear up. The patient had generalized weakness, which is slowly resolving. He is working with physical therapy and is ambulating now. The patient's oral intake has improved and is doing well. He has otherwise remained hemodynamically stable during his stay here. Attempts at placing him to the skilled unit were not successful. Case Management is still working on getting him to a skilled unit once he goes home with Home Health. Ms. Martin's Case Management is working on this. Meanwhile, he will be discharged home with Home Health and physical therapy at present. Please note, I have seen and examined the patient on the day of discharge. Job ID: [id number]
[2020-07-21] MEDS: Enoxaparin Sodium 40 MG/0.4 ML SYRINGE SC SCH (20:50)
[2020-07-21] MEDS: traZODone HCl 50 MG TAB PO SCH (20:51)
[2020-07-22] MEDS: HumaLOG 300 UNITS/3 ML VIAL SC PRN (05:31)
[2020-07-22] MEDS: Polyethylene Glycol 3350 17 GM Packet PO SCH (08:03)
[2020-07-22] MEDS: Lisinopril 20 MG TAB PO SCH (08:05)
[2020-07-22] MEDS: Metoprolol Tartrate 50 MG TAB PO SCH (08:06)
[2020-07-22] MEDS: Senokot S 8.6-50 MG TAB PO SCH (08:06)
[2020-07-22] MEDS: Finasteride 5 MG TAB PO SCH (08:06)
[2020-07-22] MEDS: Benztropine 1 MG TAB PO SCH (08:06)
[2020-07-22] MEDS: Famotidine 20 MG TAB PO SCH (08:06)
[2020-07-22] MEDS: Tamsulosin HCl 0.4 MG CAP PO SCH (08:06)
[2020-07-22] MEDS: OLANZapine 5 MG TAB PO SCH (09:11)
--- NOTE | 2020-07-22 13:33 | PDOC.HOSPP ---
- Subjective Encounter Date: 07/22/20 Encounter Time: 08:15 Subjective: feels good, no new complaints - Objective Vital Signs & Weight: Vital Signs (12 hours) Temp Pulse Resp BP BP Pulse Ox 07/22/20 11:34 97.6 F 57 L 16 110/65 98 07/22/20 08:05 157/76 H 07/22/20 08:00 97.6 F 78 24 H 157/76 H 98 07/22/20 03:40 98.1 F 62 16 157/76 H 98 Weight Admit Weight 156 lb 1 oz Weight 156 lb 1 oz I&O: 07/21/20 07/22/20 07/23/20 06:59 06:59 06:59 Intake Total 350 Output Total 650 Balance -300 Result Diagrams: 07/13/20 07:14 07/13/20 07:14 Additional Labs: Accuchecks 07/22/20 07/22/20 07/21/20 11:02 05:28 20:57 POC Glucose 151 H 157 H 141 H 07/21/20 15:17 POC Glucose 116 H Hospitalist ROS - Medication Medications: Active Medications Generic Name Dose Route Start Last Admin Trade Name Freq PRN Reason Stop Dose Admin Acetaminophen 650 mg 07/11/20 02:33 07/17/20 17:08 Acetaminophen 325 Mg Tab PO 650 mg Q4H PRN Administration Headache/Fever/Mild Pain (1-3) Benztropine Mesylate 2 mg 07/11/20 09:00 07/22/20 08:06 Benztropine 1 Mg Tab PO 2 mg DAILY FRIEDA Administration Clonidine 0.1 mg 07/11/20 02:33 07/12/20 17:53 Clonidine 0.1 Mg Tab PO 0.1 mg BID PRN Administration SBP > 160 use second Enoxaparin Sodium 40 mg 07/11/20 21:00 07/21/20 20:50 Enoxaparin Sodium 40 Mg/0.4 Ml Syringe SC 40 mg 2100 FRIEDA Administration Famotidine 20 mg 07/11/20 09:00 07/22/20 08:06 Famotidine 20 Mg Tab PO 20 mg BID FRIEDA Administration Finasteride 5 mg 07/11/20 09:00 07/22/20 08:06 Finasteride 5 Mg Tab PO 5 mg DAILY FRIEDA Administration Guaifenesin/Dextromethorphan 15 ml 07/11/20 02:33 07/14/20 17:59 Guaifenesin Dm 100-10/5 Ml Udcup PO 15 ml Q4H PRN Administration Cough Hydralazine HCl 10 mg 07/11/20 14:18 07/15/20 05:43 Hydralazine 20 Mg/Ml Vial SLOW IVP 10 mg Q4H PRN Administration SBP > 180 and HR < 70 Insulin Human Lispro 0 units 07/11/20 02:39 07/21/20 11:35 Humalog 300 Units/3 Ml Vial SC 2 unit .MILD SLIDING SCALE PRN Administration Mild Correctional Scale Labetalol HCl 20 mg 07/11/20 02:33 07/14/20 20:44 Labetalol Hcl 100 Mg/20 Ml Vial SLOW IVP 4 ml Q4H PRN Administration SBP > 160 use first Lisinopril 20 mg 07/17/20 09:00 07/22/20 08:05 Lisinopril 20 Mg Tab PO 20 mg DAILY FRIEDA Administration Metoprolol Tartrate 50 mg 07/11/20 09:00 07/22/20 08:06 Metoprolol Tartrate 50 Mg Tab PO 50 mg BID FRIEDA Administration Olanzapine 20 mg 07/11/20 09:00 07/22/20 09:11 Olanzapine 5 Mg Tab PO 20 mg DAILY FRIEDA Administration Polyethylene Glycol 17 gm 07/15/20 09:00 07/22/20 08:03 Polyethylene Glycol 3350 17 Gm Packet PO 17 gm DAILY FRIEDA Administration Senna/Docusate Sodium 1 tab 07/11/20 09:00 07/22/20 08:06 Senokot S 8.6-50 Mg Tab PO 1 tab BID FRIEDA Administration Tamsulosin HCl 0.4 mg 07/11/20 09:00 07/22/20 08:06 Tamsulosin Hcl 0.4 Mg Cap PO 0.4 mg DAILY FRIEDA Administration Trazodone HCl 100 mg 07/11/20 21:00 07/21/20 20:51 Trazodone Hcl 50 Mg Tab PO 100 mg HS FRIEDA Administration - Exam General Appearance: awake alert Eye: PERRL, anicteric sclera ENT: no oropharyngeal lesions, moist mucosa Neck: supple, no JVD Heart: RRR, no murmur Respiratory: no wheezes, no rales Gastrointestinal: soft, non-tender, non-distended, normal bowel sounds Extremities: no cyanosis, no edema Neurological: cranial nerve grossly intact, no focal deficits Hosp A/P (1) Metabolic encephalopathy Code(s): G93.41 - METABOLIC ENCEPHALOPATHY Status: Resolved (2) UTI (urinary tract infection) Status: Resolved Qualifiers: Urinary tract infection type: acute cystitis Hematuria presence: without hematuria Qualified Code(s): N30.00 - Acute cystitis without hematuria (3) COVID-19 virus infection Code(s): U07.1 - COVID-19 Status: Acute (4) Constipation Code(s): K59.00 - CONSTIPATION, UNSPECIFIED Status: Resolved Qualifiers: Constipation type: slow transit constipation Qualified Code(s): K59.01 - Slow transit constipation (5) BPH (benign prostatic hyperplasia) Code(s): N40.0 - BENIGN PROSTATIC HYPERPLASIA WITHOUT LOWER URINRY TRACT SYMP Status: Chronic Qualifiers: Lower urinary tract symptom presence: symptoms absent Qualified Code(s): N40.0 - Benign prostatic hyperplasia without lower urinary tract symptoms (6) HTN (hypertension) Code(s): I10 - ESSENTIAL (PRIMARY) HYPERTENSION Status: Chronic Qualifiers: Hypertension type: essential hypertension Qualified Code(s): I10 - Essential (primary) hypertension (7) Chronic anemia Code(s): D64.9 - ANEMIA, UNSPECIFIED Status: Chronic (8) DM type 2 (diabetes mellitus, type 2) Status: Chronic Qualifiers: Diabetes mellitus 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
[2020-07-22 17:46] VITALS: BP 160/84; TEMP 97.9
== END 2020-07-22 17:33 | disposition home health service (06) | DRG 388 ==
LOC: ERS 21:20 → ONC 07-11 01:00 → T4-A 07-11 14:00 → OBSVTOIN 07-13 17:35
PROVIDERS: ADMIT Internal Medicine; ATTEND Internal Medicine
PROC: 8E0ZXY6 Isolation (ICD-10-PCS; principal; 2020-07-13)
DX: K56.41 Fecal impaction (principal); U07.1 COVID-19; G93.41 Metabolic encephalopathy; N17.9 Acute kidney failure, unspecified; N30.00 Acute cystitis without hematuria; Z23 Encounter for immunization; K52.89 Other specified noninfective gastroenteritis and colitis; I10 Essential (primary) hypertension; E11.9 Type 2 diabetes mellitus without complications; F32.9 Major depressive disorder, single episode, unspecified; F20.9 Schizophrenia, unspecified; B96.89 Other specified bacterial agents as the cause of diseases classified elsewhere; N40.0 Benign prostatic hyperplasia without lower urinary tract symptoms; D69.6 Thrombocytopenia, unspecified; D64.9 Anemia, unspecified; E86.0 Dehydration; Z79.899 Other long term (current) drug therapy; Z88.8 Allergy status to other drugs, medicaments and biological substances
CPT/HCPCS: 36415; 36416; 51701; 70450; 71045; 74018; 74177; 80048; 80053; 81003; 81015; 83605; 83690; 83735; 83880; 84443; 84484; 85025; 87040; 87077; 87086; 87186; 87635; 90471; 90732; 93005; 96365; 96366; 96367; 96372; 96374; 96375; G0009; G0378; J0360; J0696; J1650; J2405; J3490; Q9967; U0003